=== PATIENT | female | born 1930 ===

== ENCOUNTER 2017-02-26 10:58 | Inpatient (IN) | payer MEDICARE ==
[2017-02-26 11:02] VITALS: BMI 23.0
--- NOTE | 2017-02-26 11:37 | ED PDOC ---
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 Pt c/o left shoulder pain, right headache and generalized pain. mild neck pain with movement Past Medical History Reviewed: Historical Data, Nursing Documentation, Vital Signs Vital Signs: Last Vital Signs Temp 98.2 F 02/28/17 23:58 Pulse 88 02/28/17 23:58 Resp 20 02/28/17 23:58 BP 147/70 02/28/17 23:58 Pulse Ox 97 02/28/17 23:58 - Medical History PMH: No Chronic Diseases - Family History Family History: States: Unknown Family Hx - Living Arrangements Living Arrangements: With Family - Social History Current smoker - smoking cessation education provided: No - Home Medications Home Medications: Ambulatory Orders Medication Instructions Recorded Gabapentin [Neurontin] 300 mg PO DAILY 02/26/17 Levothyroxine [Synthroid] 100 mcg PO DAILY 02/26/17 Meclizine [Meclizine*] 25 mg PO TID PRN 02/26/17 Metoprolol Succinate [Toprol XL] 50 mg PO DAILY 02/26/17 SITagliptin [Januvia] 50 mg PO DAILY 02/26/17 Simvastatin [Zocor] 40 mg PO DAILY 02/26/17 Valsartan [Diovan] 160 mg PO DAILY 02/26/17 metFORMIN [glucOPHAGE] 850 mg PO BID 02/26/17 traMADol [Ultram] 50 mg PO DAILY 02/26/17 - Allergies Allergies/Adverse Reactions: Allergies Allergy/AdvReac Type Severity Reaction Status Date / Time Penicillins Allergy RASH Verified 02/26/17 11:32 Review of Systems ROS Statement: Except As Marked, All Systems Reviewed And Found Negative Constitutional: Negative for: Fever, Chills Cardiovascular: Negative for: Chest Pain, Palpitations Respiratory: Negative for: Cough, Shortness of Breath Gastrointestinal: Negative for: Nausea, Vomiting, Abdominal Pain, Diarrhea Musculoskeletal: Positive for: Neck Pain, Shoulder Pain (l), Foot Pain (r). Negative for: Back Pain, Hand Pain, Leg Pain Neurological: Positive for: Headache. Negative for: Weakness, Numbness, Confusion, Seizures, Altered Mental Status, Dizziness Physical Exam - Reviewed Nursing Documentation Reviewed: Yes Vital Signs Reviewed: Yes - Physical Exam Appears: Positive for: Uncomfortable Head Exam: Positive for: ATRAUMATIC, NORMAL INSPECTION, NORMOCEPHALIC Eye Exam: Positive for: Normal appearance, EOMI, PERRL. Negative for: Nystagmus , Periorbital swelling, Periorbital tenderness, Conjunctival injection Neck: Positive for: Supple, Pain On Movement Of Neck (mild). Negative for: Decreased ROM, Limited ROM, Trachea Midline Cardiovascular/Chest: Positive for: Regular Rate, Rhythm, Chest Non Tender. Negative for: Edema, Gallop, Murmur, Bradycardia, Tachycardia Respiratory: Positive for: Normal Breath Sounds. Negative for: Decreased Breath Sounds, Accessory Muscle Use, Crackles, Rales, Rhonchi, Stridor, Wheezing , Respiratory Distress Pulses-Dorsalis Pedis (L): 2+ Pulses-Dorsalis Pedis (R): 2+ Pulses-Post. Tibialis (L): 2+ Pulses-Post. Tibialis (R): 2+ Pulses-Radial (L): 2+ Pulses-Radial (R): 2+ Gastrointestinal/Abdominal: Positive for: Normal Exam, Bowel Sounds, Soft. Negative for: Tenderness Back: Positive for: Normal Inspection. Negative for: L CVA Tenderness, R CVA Tenderness, Vertebral Tenderness Extremity: Positive for: Other (mod painful rom of left shoulder rom limited by pain focal tenderness to anterior shoulder hand and arm nvi. right foot with ecchymoses full rom, foot nvi). Negative for: Calf Tenderness Neurologic/Psych: Positive for: Alert, supply analyst II-XII, Oriented, Mood/Affect (calm) . Negative for: Motor/Sensory Deficits, Aphasia, Facial Droop - Laboratory Results Result Diagrams: 03/01/17 05:20 02/28/17 05:30 - ECG ECG: Positive for: Interpreted By Me ECG Rhythm: Positive for: Venticular Paced. Negative for: ST/T Changes O2 Sat by Pulse Oximetry: 92 Pulse Ox Interpretation: Normal Medical Decision Making Medical Decision Making: bl hips and pelvis 1 view revela no fx or dislocation, left shoulder 3 views no fx or dislocation, poss scapular fx. right foot 3 views revelas mild displaced linear su fracture, no sts. swill be seen podiatry. Disposition - Clinical Impression Clinical Impression: Fracture, metacarpal - Patient ED Disposition Is Patient to be Admitted: Yes Counseled Patient/Family Regarding: Studies Performed, Diagnosis - Disposition Disposition Time: 15:00 Condition: STABLE - Pt Status Changed To: Hospital Disposition Of: Observation
[2017-02-26] MEDS ORDERED: Sodium Chloride 0.9% 1,000 ML IV ONE (11:41)
[2017-02-26 12:52] LABS: BASO # 0.1 K/uL (0.0-0.2); BASO % 0.7 % (0.0-2.0); EOS # 0.6 K/uL (0.0-0.7); EOS % 7.2 % (0.0-4.0); HEMOGLOBIN 12.8 g/dL (12.0-16.0); LYMPH # 1.5 K/uL (1.0-4.3); LYMPH % 17.2 % (20.0-40.0); MEAN CELL VOLUME 85.5 fl (81.0-99.0); MEAN CORPUSCULAR HEMOGLOBIN 27.3 pg (27.0-31.0); MEAN PLATELET VOLUME 8.7 fl (7.2-11.7); MONO # 0.6 K/uL (0.0-0.8); MONO % 6.8 % (0.0-10.0); NEUT # 6.1 K/uL (1.8-7.0); NEUT % 68.1 % (50.0-75.0); NRBC % 0.1 % (0.0-0.0); RBC 4.67 Mil/uL (3.80-5.20); RED CELL DISTRIBUTION WIDTH 15.1 % (11.5-14.5)
[2017-02-26 13:07] LABS: ALB/GLOB RATIO 1.5 (1.0-2.1); ALBUMIN 4.2 g/dL (3.5-5.0); CALCIUM 10.3 mg/dL (8.4-10.2); MAGNESIUM 1.9 MG/DL (1.6-2.3)
[2017-02-26 13:09] LABS: PROTHROMBIN TIME 11.5 Seconds (9.8-13.1)
[2017-02-26 13:10] LABS: INR 1.1 (0.9-1.2)
[2017-02-26 13:18] LABS: TROPONIN I 0.042 ng/mL (0.00-0.120)
--- NOTE | 2017-02-26 13:36 | RAD ---
PROCEDURE: CHEST RADIOGRAPH, 1 VIEW HISTORY: trauma COMPARISON: 03/24/2009. FINDINGS: LUNGS: Clear. PLEURA: No pneumothorax or pleural fluid seen. CARDIOVASCULAR: No radiographic findings to suggest acute or significant cardiovascular disease. Position/ configuration of pacemaker device: Satisfactory. OSSEOUS STRUCTURES: No significant abnormalities. VISUALIZED UPPER ABDOMEN: Normal. OTHER FINDINGS: None. IMPRESSION: No active disease. No acute/significant interval changes. Concordant results with the preliminary interpretation rendered by the emergency department physician procedure.
--- NOTE | 2017-02-26 13:37 | RAD ---
PROCEDURE: Right Foot Radiographs. HISTORY: trauma COMPARISON: None. FINDINGS: BONES: Transverse fracture base of right 5th metatarsal. JOINTS: Moderate hallux valgus deformity. SOFT TISSUES: Normal. OTHER FINDINGS: None. IMPRESSION: Acute transverse fracture base of 5th metatarsal. Concordant results with the preliminary interpretation rendered by the emergency department physician procedure.
--- NOTE | 2017-02-26 13:38 | RAD ---
PROCEDURE: Radiographs of the Left Shoulder HISTORY: trauma COMPARISON: No prior. FINDINGS: BONES: No acute fracture identified. JOINTS: Severe degenerative changes likely posttraumatic glenohumeral relationship. Mild acromioclavicular degenerative change. . SOFT TISSUES: Normal. OTHER FINDINGS: None. IMPRESSION: No acute findings related to/accounting for the clinical presentation. Concordant results with the preliminary interpretation rendered by the emergency department physician procedure.
--- NOTE | 2017-02-26 13:39 | RAD ---
PROCEDURE: Radiographs of the pelvis and bilateral hips HISTORY: trauma COMPARISON: None. FINDINGS: BONES: Pelvis: No acute fracture. Right hip:Unremarkable. Left hip:Unremarkable. JOINTS: Right hip: Mild degenerative changes. Left hip: Symmetrical degenerative changes. Sacroiliac Joints: Unremarkable. Pubic symphysis: Unremarkable. SOFT TISSUES: Normal. OTHER FINDINGS: None. IMPRESSION: No acute findings related to/accounting for the clinical presentation. Concordant results with the preliminary interpretation rendered by the emergency department physician procedure.
--- NOTE | 2017-02-26 13:41 | CT ---
PROCEDURE: CT HEAD WITHOUT CONTRAST. HISTORY: trauma COMPARISON: None available. TECHNIQUE: Axial computed tomography images were obtained through the head/brain without intravenous contrast. Coronal and sagittal reconstructed images. Radiation dose: Total exam DLP = 920.48 mGy-cm. This CT exam was performed using one or more of the following dose reduction techniques: Automated exposure control, adjustment of the mA and/or kV according to patient size, and/or use of iterative reconstruction technique. FINDINGS: HEMORRHAGE: No intracranial hemorrhage. BRAIN: No mass effect or edema. Cortical atrophy, periventricular small vessel disease VENTRICLES: Unremarkable. No hydrocephalus. CALVARIUM: Unremarkable. PARANASAL SINUSES: Unremarkable as visualized. No significant inflammatory changes. MASTOID AIR CELLS: Unremarkable as visualized. No inflammatory changes. OTHER FINDINGS: None. IMPRESSION: No acute intracranial abnormalities. No significant findings to account for the clinical presentation.
--- NOTE | 2017-02-26 13:47 | CT ---
PROCEDURE: CT Cervical Spine without contrast HISTORY: Trauma. Left shoulder pain COMPARISON: None available. TECHNIQUE: Axial computed tomography images were obtained of the cervical spine without the use of intravenous contrast. Coronal and sagittal reformatted images were created and reviewed. Radiation dose: Total exam DLP = 510.80 mGy-cm. This CT exam was performed using one or more of the following dose reduction techniques: Automated exposure control, adjustment of the mA and/or kV according to patient size, and/or use of iterative reconstruction technique. FINDINGS: VERTEBRAE: No fracture. Normal alignment. No destructive bony lesion. DISCS/SPINAL CANAL/NEURAL FORAMINA: Disc degenerative changes, moderate, multilevel. Central bar formation C4-5 and C5-6. There is impression upon the central canal at these levels. Foraminal narrowing is also seen as is uncovertebral hypertrophy. PARASPINAL SOFT TISSUES: Unremarkable. OTHER FINDINGS: Incompletely visualized esophageal thickening in etiology, significance uncertain. Findings likely represent esophagitis. IMPRESSION: No acute findings related to/accounting for the clinical presentation. Additional benign and/or incidental findings described above.
--- NOTE | 2017-02-26 13:50 | CT ---
PROCEDURE: CT of the left shoulder without contrast HISTORY: left shoulder pain r/o scapular fracture COMPARISON: Comparison is made to the previous x-ray of the left shoulder dated 02/26/2017 TECHNIQUE: Axial and reformatted coronal and sagittal CT images of the left shoulder were obtained without IV contrast administration. Total exam DLP: 309.46. FINDINGS: There is no evidence of acute fracture at the left shoulder and left scapula. There are severe osteoarthritic changes seen at the left shoulder more prominent at the glenohumeral joint. There is severe narrowing of the joint space of the glenohumeral joint associated with large marginal osteophyte formation. There are also foci of calcification in the joint is space suggestive of calcified loose body. No evidence of dislocation. There is also suspicious for small to moderate size joint effusion. There is left-sided pacemaker seen in place. No evidence of pleural effusion or pneumothorax in the visualized portion of the left chest. . IMPRESSION: No CT evidence of acute fracture or dislocation at the left shoulder. 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 Suspicious for calcified loose bodies at the glenohumeral joint associated with joint effusion.
--- NOTE | 2017-02-26 15:40 | CARD ---
APPROVED REPORT EKG Measurement Heart [id number] <Conclusion> Pacemaker Rhythm
--- NOTE | 2017-02-26 17:17 | CP.PCM.CON ---
History of Present Illness - History of Present Illness History of Present Illness: 86 year old female with PMH of DM and heart disease was seen in the ED for right foot pain. She states that she fell yesterday in the bathroom as she was getting up from the using the rest room. She was founded by her caregiver this morning. She states her pain is 8/10 and describes the pain being on the lateral side of her right foot radiating to her ankle. She denies n/v/sob/cp/ chills or f. Patient is kazakh speaking- director sales service was used in this encounter [place] [id number] PMH: DM, heart disease Allergies: Pencillin FH: cancer, DM, heart disease SH: denies smoking, drinking or elicited drug use PSH: hysterectomy Meds: see medication list Meds Allergies/Adverse Reactions: Allergies Allergy/AdvReac Type Severity Reaction Status Date / Time Penicillins Allergy RASH Verified 02/26/17 11:32 Physical Exam - Constitutional Appears: Well, Non-toxic, No Acute Distress - Extremities Exam Additional comments: Vasc: DP and PT is faintly palpable, temperature is cool to cool, edema noted to the right foot noted, DIRECTOR OF PRIMARY <4 seconds Ortho: MM is 4/5 L and 3/5 R in all four compartments, severe pain with palpation of the lateral metatarsal shaft and base and lateral dorsum foot Neuro:protective sensation is diminished bilaterally, gross sensation intact bilaterally Derm: no open lesion, ecchymosis noted to the dorsum of R lateral foot - Neurological Exam Neurological exam: Alert, Oriented x3 - Psychiatric Exam Psychiatric exam: Normal Affect, Normal Mood Results - Vital Signs Recent Vital Signs: Last Vital Signs Temp 98.2 F 02/26/17 11:01 Pulse 87 02/26/17 11:01 Resp 20 02/26/17 11:01 BP 108/62 02/26/17 11:01 Pulse Ox 92 L 02/26/17 15:05 - Labs Result Diagrams: 02/26/17 12:30 02/26/17 12:30 Assessment & Plan - Assessment and Plan (Free Text) Assessment: 86 year old female with PMH of DM and heart disease seen for right 5th metatarsal fracture Plan: Patient was seen and evaluated in the ED Discussed plan in detail with attending Dr. Heredia Charts, labs, vitals reviewed- afebrile, no leukocytosis Modified su compression placed in right lower extremity Patient was told initially to she may WBAT with modified su compression in surgical shoe with walker as outpatient, but since she's being admitted, it is best that she remain NWB Spoke to nurse that her WB status has changed. She is to be NWB in modified su compression. Patient will continue to follow while in house. Thank you for the consult.
[2017-02-26 17:31] LABS: SQUAMOUS EPITHIAL 6 /hpf (0-5); URINE BACTERIA OCC (<OCC); URINE BILIRUBIN NEGATIVE (NEGATIVE); URINE BLOOD MODERATE (NEGATIVE); URINE CLARITY CLOUDY (Clear); URINE COLOR YELLOW (YELLOW); URINE GLUCOSE (UA) NEG (Normal); URINE HYALINE CAST 0-2 /hpf (0-2); URINE LEUKOCYTE ESTERASE LARGE Leu/uL (Negative); URINE NITRATE NEGATIVE (NEGATIVE); URINE PROTEIN NEGATIVE (NEGATIVE); URINE UROBILINOGEN 0.2-1.0 mg/dL (0.2-1.0)
[2017-02-26 19:19] LABS: HDL CHOLESTEROL 45 MG/DL (30-70)
[2017-02-26 19:30] LABS: LDL CHOLESTEROL 87 mg/dL (0-129)
[2017-02-27] MEDS: Levothyroxine 100 MCG TAB PO SCH (06:39)
[2017-02-27] MEDS: Oxycodone/Acetaminophen 5/325 mg Tab PO PRN ×3 (07:33→23:42)
[2017-02-27 08:51] LABS: CALCIUM 10.1 mg/dL (8.4-10.2)
[2017-02-27] MEDS: Metoprolol Succinate 50 mg XL Tab PO SCH (09:30)
[2017-02-27] MEDS: Enoxaparin 30 mg Syringe SC SCH (09:30)
--- NOTE | 2017-02-27 10:08 | CARD ---
APPROVED REPORT EXAM: Two-dimensional and M-mode echocardiogram with Doppler and color Doppler. Other Information Quality : GoodRhythm : NSR INDICATION Congestive Heart Failure Surgery/Intervention Pacemaker: 2D DIMENSIONS IVSd1.28 (0.7-1.1cm)LVDd3.32 (3.9-5.9cm) LVOT Diameter1.96 (1.8-2.4cm)PWd1.51 (0.7-1.1cm) IVSs1.57 (0.8-1.2cm)LVDs2.37 (2.5-4.0cm) FS (%) 28.8 %PWs1.50 (0.8-1.2cm) M-Mode DIMENSIONS Left Atrium (MM)3.21 (2.5-4.0cm)IVSd1.06 (0.7-1.1cm) Aortic Root3.00 (2.2-3.7cm)LVDd4.03 (4.0-5.6cm) Aortic Cusp Exc.1.00 (1.5-2.0cm)PWd1.12 (0.7-1.1cm) IVSs1.62 cmFS (%) 44 % LVDs2.26 (2.0-3.8cm)PWs1.62 cm Aortic Valve AoV Peak Gigldngu328.0cm/sAoV VTI42.3cmAO Peak GR.16mmHg LVOT Peak Oyvbkppk46.1cm/sLVOT VTI20.18cmAO Mean GR.10mmHg SHUN (VMAX)0.61yb2IHP (VTI)0.90cm2 Mitral Valve MV E Wqkluvbt336.1cm/sMV DECEL HJKA491drGN A Cujudwuw211.0cm/s MV ZBN61iqB/A ratio0.6MVA (PHT)2.71cm2 TDI E/Lateral E'0.0E/Medial E'0.0 Pulmonary Valve PV Peak Imzepxuk07.0cm/s Tricuspid Valve TR Peak Oodzenku491jc/sRAP BQHDSXJP03foRuYB Peak Gr.47mmHg MZBV52ltFj LEFT VENTRICLE The left ventricle is normal size. There is moderate concentric left ventricular hypertrophy. The left ventricular function is normal. The left ventricular ejection fraction is within the normal range. The Ejection Fraction is 55-60%. There is normal LV segmental wall motion. The left ventricular diastolic function is normal. No left ventricle thrombus noted on this study. There is no mass noted in the left ventricle. RIGHT VENTRICLE The right ventricle is normal size. There is normal right ventricular wall thickness. The right ventricular systolic function is normal. ATRIA The left atrium size is normal. The right atrium size is normal. The interatrial septum is intact with no evidence for an atrial septal defect. AORTIC VALVE The aortic valve is mildly calcified. No aortic regurgitation is present. There is mild valvular aortic stenosis. There is no aortic valvular vegetation. MITRAL VALVE Mitral annular calcification is mild. There is no evidence of mitral valve prolapse. There is no mitral valve stenosis. Mitral regurgitation is mild. TRICUSPID VALVE The tricuspid valve is normal in structure and function. There is mild tricuspid regurgitation. Right ventricular systolic pressure is estimated at 57 mmHg. There is moderate pulmonary hypertension. There is no tricuspid valve prolapse or vegetation. There is no tricuspid valve stenosis. PULMONIC VALVE The pulmonary valve is normal in structure and function. There is no pulmonic valvular regurgitation. There is no pulmonic valvular stenosis. GREAT VESSELS The aortic root is normal in size. The IVC is normal in size and collapses >50% with inspiration. PERICARDIAL EFFUSION The pericardium appears normal. There is no pleural effusion. <Conclusion> The left ventricle is normal size. There is moderate concentric left ventricular hypertrophy. The left ventricular function is normal. The left ventricular ejection fraction is within the normal range. The Ejection Fraction is 55-60%. The aortic valve is mildly calcified. There is mild valvular aortic stenosis. Mitral annular calcification is mild. Mitral regurgitation is mild. There is mild tricuspid regurgitation. Right ventricular systolic pressure is estimated at 57 mmHg. There is moderate pulmonary hypertension.
--- NOTE | 2017-02-27 10:17 | CP.PCM.CON ---
History of Present Illness - History of Present Illness History of Present Illness: 86 y/o female admitted after a fall sustained a Fx Right 5th Metatarsal Consult called for abnormal EKG: PMH: HTN Permanent Pacemaker inserted 3-4 Yrs ago EKG: Pacemaker rhythm Echo: Conc Hypertrphy LV Good LV function MR TR Pt denies any chest pains / SOB/HOUSE/palpitations Past Patient History - Past Medical History & Family History Past Medical History?: Yes - Past Social History Smoking Status: Light Smoker < 10 Cigarettes Daily - CARDIAC Hx Cardiac Disorders: No - PULMONARY Hx Respiratory Disorders: No - NEUROLOGICAL Hx Neurological Disorder: No - HEENT Hx HEENT Problems: Yes Hx Cataracts: Yes - RENAL Hx Chronic Kidney Disease: No - ENDOCRINE/METABOLIC Hx Endocrine Disorders: Yes Hx Diabetes Mellitus Type 2: Yes - HEMATOLOGICAL/ONCOLOGICAL Hx Blood Disorders: No - INTEGUMENTARY Hx Dermatological Problems: No - MUSCULOSKELETAL/RHEUMATOLOGICAL Hx Musculoskeletal Disorders: Yes Hx Falls: Yes - GASTROINTESTINAL Hx Gastrointestinal Disorders: No - GENITOURINARY/GYNECOLOGICAL Hx Genitourinary Disorders: No - PSYCHIATRIC Hx Psychophysiologic Disorder: No Hx Substance Use: No - SURGICAL HISTORY Hx Surgeries: Yes Hx Hysterectomy: Yes - ANESTHESIA Hx Anesthesia: Yes Hx Anesthesia Reactions: No Hx Malignant Hyperthermia: No Has any member of the family had a problem w/ anesthesia?: No Meds Allergies/Adverse Reactions: Allergies Allergy/AdvReac Type Severity Reaction Status Date / Time Penicillins Allergy RASH Verified 02/26/17 11:32 - Medications Medications: Current Medications Acetaminophen (Tylenol 325mg Tab) 650 mg PO Q6 PRN PRN Reason: Pain, Mild (1-3) Atorvastatin Calcium (Lipitor) 20 mg PO DAILY [facility] Last Admin: 02/27/17 09:30 Dose: 20 mg Enoxaparin Sodium (Lovenox) 30 mg SC DAILY [facility] PRN Reason: Protocol Last Admin: 02/27/17 09:30 Dose: 30 mg Gabapentin (Neurontin) 300 mg PO DAILY [facility] Last Admin: 02/27/17 09:29 Dose: 300 mg Levothyroxine Sodium (Synthroid) 100 mcg PO DAILY@0630 [facility] Last Admin: 02/27/17 06:39 Dose: 100 mcg Metformin HCl (Glucophage) 850 mg PO BID [facility] Last Admin: 02/27/17 09:30 Dose: 850 mg Metoprolol Succinate (Toprol Xl) 50 mg PO DAILY [facility] Last Admin: 02/27/17 09:30 Dose: 50 mg Oxycodone/Acetaminophen (Percocet 5/325 Mg Tab) 1 tab PO Q6 PRN PRN Reason: Pain, moderate (4-7) Stop: 03/01/17 22:01 Last Admin: 02/27/17 07:33 Dose: 1 tab Sitagliptin Phosphate (Januvia) 50 mg PO DAILY [facility] Last Admin: 02/27/17 09:30 Dose: 50 mg Valsartan (Diovan) 160 mg PO DAILY [facility] Last Admin: 02/27/17 09:29 Dose: 160 mg Physical Exam - Head Exam Head Exam: NORMAL INSPECTION - Eye Exam Pupil Exam: NORMAL ACCOMODATION - ENT Exam ENT Exam: Normal Exam - Neck Exam Neck exam: Positive for: Normal Inspection - Respiratory Exam Respiratory Exam: NORMAL BREATHING PATTERN - Cardiovascular Exam Cardiovascular Exam: REGULAR RHYTHM Results - Vital Signs Recent Vital Signs: Last Vital Signs Temp 97.4 F L 02/27/17 08:28 Pulse 75 02/27/17 09:30 Resp 20 02/27/17 08:28 BP 171/72 H 02/27/17 09:30 Pulse Ox 92 L 02/27/17 08:28 - Labs Result Diagrams: 02/26/17 12:30 02/27/17 06:00 Labs: Laboratory Results - last 24 hr 02/26/17 02/26/17 02/26/17 17:06 17:59 19:06 Sodium Potassium Chloride Carbon Dioxide Anion Gap BUN Creatinine Est GFR ( Amer) Est GFR (Non-Af Amer) POC Glucose (mg/dL) 218 H Random Glucose Calcium Total Creatine Kinase Triglycerides 217 H Cholesterol 199 LDL Cholesterol Direct 87 HDL Cholesterol 45 TSH 3rd Generation Urine Color Yellow Urine Clarity Cloudy Urine pH 6.0 Ur Specific [place] 1.015 Urine Protein Negative Urine Glucose (UA) Neg Urine Ketones Negative Urine Blood Moderate Urine Nitrate Negative Urine Bilirubin Negative Urine Urobilinogen 0.2-1.0 Ur Leukocyte Esterase Large Urine RBC (Auto) 12 H Urine Microscopic WBC 55 H Ur Squamous Epith Cells 6 H Urine Bacteria Occ H Hyaline Casts 0-2 02/27/17 02/27/17 02/27/17 05:14 06:00 08:50 Sodium 141 Potassium 4.1 Chloride 106 Carbon Dioxide 26 Anion Gap 12 BUN 32 H Creatinine 1.2 Est GFR ( Amer) 52 Est GFR (Non-Af Amer) 43 POC Glucose (mg/dL) 187 H Random Glucose 131 H Calcium 10.1 Total Creatine Kinase 201 H Triglycerides Cholesterol LDL Cholesterol Direct HDL Cholesterol TSH 3rd Generation 0.59 Urine Color Urine Clarity Urine pH Ur Specific [place] Urine Protein Urine Glucose (UA) Urine Ketones Urine Blood Urine Nitrate Urine Bilirubin Urine Urobilinogen Ur Leukocyte Esterase Urine RBC (Auto) Urine Microscopic WBC Ur Squamous Epith Cells Urine Bacteria Hyaline Casts Assessment & Plan (1) Fracture of metatarsal of right foot, closed Status: Acute (2) History of permanent cardiac pacemaker placement Assessment and Plan: Pt has a PPM EKG: PPM Rhythm Cardiac vang the pt is stable Status: Acute (3) Essential (primary) hypertension Status: Acute
--- NOTE | 2017-02-27 12:18 | CP.PCM.HP ---
History of Present Illness - History of Present Illness History of Present Illness: 86 y/o F with PMHx of HTN, DM type 2, Hypothyroidism, and Pacemaker ( 3 years ago) came via EMS. As per EMS, pt fell last night and was found by caregiver this AM. As per patient she did not hit her head or had LOC. Patient states right foot pain,radiating up to her right leg below the knee, denies numbness, tingling or foot or lower extremities. Denies Cp, SOB, N/V, abdominal pain or other complains. Present on Admission - Present on Admission Any Indicators Present on Admission: No History of DVT/PE: No History of Uncontrolled Diabetes: No Urinary Catheter: No Decubitus Ulcer Present: No Review of Systems - Review of Systems All systems: reviewed and no additional remarkable complaints except (as per HPI ) Past Patient History - Past Medical History & Family History Past Medical History?: Yes - Past Social History Smoking Status: Light Smoker < 10 Cigarettes Daily - CARDIAC Hx Cardiac Disorders: No - PULMONARY Hx Respiratory Disorders: No - NEUROLOGICAL Hx Neurological Disorder: No - HEENT Hx HEENT Problems: Yes Hx Cataracts: Yes - RENAL Hx Chronic Kidney Disease: No - ENDOCRINE/METABOLIC Hx Endocrine Disorders: Yes Hx Diabetes Mellitus Type 2: Yes - HEMATOLOGICAL/ONCOLOGICAL Hx Blood Disorders: No - INTEGUMENTARY Hx Dermatological Problems: No - MUSCULOSKELETAL/RHEUMATOLOGICAL Hx Musculoskeletal Disorders: Yes Hx Falls: Yes - GASTROINTESTINAL Hx Gastrointestinal Disorders: No - GENITOURINARY/GYNECOLOGICAL Hx Genitourinary Disorders: No - PSYCHIATRIC Hx Psychophysiologic Disorder: No Hx Substance Use: No - SURGICAL HISTORY Hx Surgeries: Yes Hx Hysterectomy: Yes - ANESTHESIA Hx Anesthesia: Yes Hx Anesthesia Reactions: No Hx Malignant Hyperthermia: No Has any member of the family had a problem w/ anesthesia?: No Meds Allergies/Adverse Reactions: Allergies Allergy/AdvReac Type Severity Reaction Status Date / Time Penicillins Allergy RASH Verified 02/26/17 11:32 Physical Exam - Constitutional Appears: No Acute Distress - ENT Exam ENT Exam: Mucous Membranes Moist - Respiratory Exam Respiratory Exam: Clear to Auscultation Bilateral, NORMAL BREATHING PATTERN. absent: Rales, Rhonchi, Wheezes, Respiratory Distress - Cardiovascular Exam Cardiovascular Exam: REGULAR RHYTHM, +S1, +S2 - GI/Abdominal Exam GI & Abdominal Exam: Normal Bowel Sounds, Soft. absent: Distended, Guarding, Rigid, Tenderness - Extremities Exam Extremities exam: Positive for: normal inspection. Negative for: calf tenderness, pedal edema - Neurological Exam Neurological exam: Alert, Oriented x3 - Skin Skin Exam: Dry, Intact, Normal Color Results - Vital Signs Recent Vital Signs: Last Vital Signs Temp 97.4 F L 02/27/17 08:28 Pulse 75 02/27/17 09:30 Resp 20 02/27/17 08:28 BP 171/72 H 02/27/17 09:30 Pulse Ox 92 L 02/27/17 08:28 - Labs Result Diagrams: 02/26/17 12:30 02/27/17 06:00 Labs: Laboratory Results - last 24 hr 02/26/17 02/26/17 02/26/17 17:06 17:59 19:06 Sodium Potassium Chloride Carbon Dioxide Anion Gap BUN Creatinine Est GFR ( Amer) Est GFR (Non-Af Amer) POC Glucose (mg/dL) 218 H Random Glucose Calcium Total Creatine Kinase Triglycerides 217 H Cholesterol 199 LDL Cholesterol Direct 87 HDL Cholesterol 45 Vitamin B12 TSH 3rd Generation Urine Color Yellow Urine Clarity Cloudy Urine pH 6.0 Ur Specific Sparks 1.015 Urine Protein Negative Urine Glucose (UA) Neg Urine Ketones Negative Urine Blood Moderate Urine Nitrate Negative Urine Bilirubin Negative Urine Urobilinogen 0.2-1.0 Ur Leukocyte Esterase Large Urine RBC (Auto) 12 H Urine Microscopic WBC 55 H Ur Squamous Epith Cells 6 H Urine Bacteria Occ H Hyaline Casts 0-2 02/27/17 02/27/17 02/27/17 05:14 06:00 08:50 Sodium 141 Potassium 4.1 Chloride 106 Carbon Dioxide 26 Anion Gap 12 BUN 32 H Creatinine 1.2 Est GFR ( Amer) 52 Est GFR (Non-Af Amer) 43 POC Glucose (mg/dL) 187 H Random Glucose 131 H Calcium 10.1 Total Creatine Kinase 201 H Triglycerides Cholesterol LDL Cholesterol Direct HDL Cholesterol Vitamin B12 266 TSH 3rd Generation 0.59 Urine Color Urine Clarity Urine pH Ur Specific Sparks Urine Protein Urine Glucose (UA) Urine Ketones Urine Blood Urine Nitrate Urine Bilirubin Urine Urobilinogen Ur Leukocyte Esterase Urine RBC (Auto) Urine Microscopic WBC Ur Squamous Epith Cells Urine Bacteria Hyaline Casts 02/27/17 10:48 Sodium Potassium Chloride Carbon Dioxide Anion Gap BUN Creatinine Est GFR ( Amer) Est GFR (Non-Af Amer) POC Glucose (mg/dL) 161 H Random Glucose Calcium Total Creatine Kinase Triglycerides Cholesterol LDL Cholesterol Direct HDL Cholesterol Vitamin B12 TSH 3rd Generation Urine Color Urine Clarity Urine pH Ur Specific Sparks Urine Protein Urine Glucose (UA) Urine Ketones Urine Blood Urine Nitrate Urine Bilirubin Urine Urobilinogen Ur Leukocyte Esterase Urine RBC (Auto) Urine Microscopic WBC Ur Squamous Epith Cells Urine Bacteria Hyaline Casts Assessment & Plan (1) Fracture of metatarsal of right foot, closed Status: Acute Comment: c/w pain control. Podiatry consult. f/o Podiatry recommendations (2) Essential (primary) hypertension Status: Chronic Comment: c/w home meds. c/w BP monitoring (3) Diabetes mellitus type 2 in nonobese Status: Chronic Comment: c/w accucheck. c/w home medications. f/u HgbA1C. f/u lipid profile (4) Acute kidney failure Status: Acute Comment: most likely due to dehydration. BUN/Cr: 44/1.5. patient got IV bolus in ER. f/u BMP: BUN/Cr - Assessment and Plan (Free Text) Assessment: 86 y/o F s/p fall, admitted with acute renal failure and fracture of metatarsal right foot. - Date & Time Date: 02/26/17 Time: 16:00
--- NOTE | 2017-02-27 18:08 | CP.PCM.CON ---
History of Present Illness - History of Present Illness History of Present Illness: Mrs. Reynaga is an 86-year-old woman with a past medical history of HTN, DM, has pacemaker, vertigo, who was brought in by EMS after being found on the floor as a result of a fall. She did not have loss of consciousness and was found to have a fracture of the right foot. The patient complains of being chronically dizzy. Neurology was consulted to assist with the management and care. Today, the patient had received Percocet for the pain and complained that she as still having left shoulder and right foot. The patient had imaging of her head with a CT scan which did not show any acute findings. Review of Systems - Review of Systems All systems: reviewed and no additional remarkable complaints except Past Patient History - Past Medical History & Family History Past Medical History?: Yes - Past Social History Smoking Status: Light Smoker < 10 Cigarettes Daily - CARDIAC Hx Cardiac Disorders: No - PULMONARY Hx Respiratory Disorders: No - NEUROLOGICAL Hx Neurological Disorder: No - HEENT Hx HEENT Problems: Yes Hx Cataracts: Yes - RENAL Hx Chronic Kidney Disease: No - ENDOCRINE/METABOLIC Hx Endocrine Disorders: Yes Hx Diabetes Mellitus Type 2: Yes - HEMATOLOGICAL/ONCOLOGICAL Hx Blood Disorders: No - INTEGUMENTARY Hx Dermatological Problems: No - MUSCULOSKELETAL/RHEUMATOLOGICAL Hx Musculoskeletal Disorders: Yes Hx Falls: Yes - GASTROINTESTINAL Hx Gastrointestinal Disorders: No - GENITOURINARY/GYNECOLOGICAL Hx Genitourinary Disorders: No - PSYCHIATRIC Hx Psychophysiologic Disorder: No Hx Substance Use: No - SURGICAL HISTORY Hx Surgeries: Yes Hx Hysterectomy: Yes - ANESTHESIA Hx Anesthesia: Yes Hx Anesthesia Reactions: No Hx Malignant Hyperthermia: No Has any member of the family had a problem w/ anesthesia?: No Meds Allergies/Adverse Reactions: Allergies Allergy/AdvReac Type Severity Reaction Status Date / Time Penicillins Allergy RASH Verified 02/26/17 11:32 - Medications Medications: Current Medications Acetaminophen (Tylenol 325mg Tab) 650 mg PO Q6 PRN PRN Reason: Pain, Mild (1-3) Atorvastatin Calcium (Lipitor) 20 mg PO DAILY [facility] Last Admin: 02/27/17 09:30 Dose: 20 mg Enoxaparin Sodium (Lovenox) 30 mg SC DAILY [facility] PRN Reason: Protocol Last Admin: 02/27/17 09:30 Dose: 30 mg Gabapentin (Neurontin) 300 mg PO DAILY [facility] Last Admin: 02/27/17 09:29 Dose: 300 mg Levothyroxine Sodium (Synthroid) 100 mcg PO DAILY@0630 [facility] Last Admin: 02/27/17 06:39 Dose: 100 mcg Metformin HCl (Glucophage) 850 mg PO BID [facility] Last Admin: 02/27/17 17:20 Dose: 850 mg Metoprolol Succinate (Toprol Xl) 50 mg PO DAILY [facility] Last Admin: 02/27/17 09:30 Dose: 50 mg Oxycodone/Acetaminophen (Percocet 5/325 Mg Tab) 1 tab PO Q6 PRN PRN Reason: Pain, moderate (4-7) Stop: 03/01/17 22:01 Last Admin: 02/27/17 17:20 Dose: 1 tab Sitagliptin Phosphate (Januvia) 50 mg PO DAILY [facility] Last Admin: 02/27/17 09:30 Dose: 50 mg Valsartan (Diovan) 160 mg PO DAILY [facility] Last Admin: 02/27/17 09:29 Dose: 160 mg Physical Exam - Constitutional Appears: Well - Eye Exam Eye Exam: EOMI, Normal appearance, PERRL - ENT Exam ENT Exam: Mucous Membranes Moist, Normal Exam - Neck Exam Neck exam: Positive for: Normal Inspection - Respiratory Exam Respiratory Exam: Clear to Auscultation Bilateral, NORMAL BREATHING PATTERN - Cardiovascular Exam Cardiovascular Exam: REGULAR RHYTHM, +S1, +S2 - GI/Abdominal Exam GI & Abdominal Exam: Normal Bowel Sounds, Soft. absent: Tenderness - Rectal Exam Rectal Exam: Deferred - Extremities Exam Extremities exam: Positive for: joint swelling - Back Exam Back exam: NORMAL INSPECTION - Neurological Exam Neurological exam: Abnormal Gait, Alert, CN II-XII Intact, Oriented x3 - Expanded Neurological Exam Expanded Patient oriented to: person, place, time Cranial nerves: EOM's Intact: Normal, Facial Sensation: Normal, Nystagmus: Normal Cerebellar Function: Finger to Nose: Abnormal Left (unable to perform due to pain in shoulder) Upper motor neuron: Babinski Sign: Normal Sensory exam: Lower Extremity Light Touch: Normal, Lower Extremity Pin Prick: Normal, Upper Extremity Light Touch: Normal, Upper Extremity Pin Prick: Normal Neuro motor strength exam: Left Upper Extremity: 3 (Due to pain), Right Upper Extremity: 5, Left Lower Extremity: 5, Right Lower Extremity: 4 (normal proximal strength, but distal was abnormal due to being in a cast and pain.) DTR: Bicep Left: 2+, Bicep Right: 2+, Brachioradialis Left: 2+, Brachioradialis Right: 2+, Patellar Left: 2+, Patellar Right: 2+ - Psychiatric Exam Psychiatric exam: Normal Affect, Normal Mood - Skin Skin Exam: Dry, Intact, Normal Color, Warm Results - Vital Signs Recent Vital Signs: Last Vital Signs Temp 97.4 F L 02/27/17 08:28 Pulse 75 02/27/17 09:30 Resp 20 02/27/17 08:28 BP 171/72 H 02/27/17 09:30 Pulse Ox 92 L 02/27/17 08:28 - Labs Result Diagrams: 02/26/17 12:30 02/27/17 06:00 Labs: Laboratory Results - last 24 hr 02/26/17 02/26/17 02/27/17 17:59 19:06 05:14 Sodium Potassium Chloride Carbon Dioxide Anion Gap BUN Creatinine Est GFR ( Amer) Est GFR (Non-Af Amer) POC Glucose (mg/dL) 218 H 187 H Random Glucose Calcium Total Creatine Kinase Triglycerides 217 H Cholesterol 199 LDL Cholesterol Direct 87 HDL Cholesterol 45 Vitamin B12 TSH 3rd Generation 02/27/17 02/27/17 02/27/17 06:00 08:50 10:48 Sodium 141 Potassium 4.1 Chloride 106 Carbon Dioxide 26 Anion Gap 12 BUN 32 H Creatinine 1.2 Est GFR ( Amer) 52 Est GFR (Non-Af Amer) 43 POC Glucose (mg/dL) 161 H Random Glucose 131 H Calcium 10.1 Total Creatine Kinase 201 H Triglycerides Cholesterol LDL Cholesterol Direct HDL Cholesterol Vitamin B12 266 TSH 3rd Generation 0.59 02/27/17 17:27 Sodium Potassium Chloride Carbon Dioxide Anion Gap BUN Creatinine Est GFR ( Amer) Est GFR (Non-Af Amer) POC Glucose (mg/dL) 138 H Random Glucose Calcium Total Creatine Kinase Triglycerides Cholesterol LDL Cholesterol Direct HDL Cholesterol Vitamin B12 TSH 3rd Generation Assessment & Plan (1) Dizziness Assessment and Plan: She does not describe this as vertigo, but states that she feels lightheaded. This could be due to cardiac, renal or medications. Non-focal neurological exam and no nystagmus was noted. No further recommendations at this time. Thank you. Status: Acute Priority: High
--- NOTE | 2017-02-27 19:16 | HP ---
CHIEF COMPLAINT: Foot pain. HISTORY OF PRESENT ILLNESS: This is an 86-year-old female who lives at home-alone with director of home economics, who had a fall at home and then patient could not get up from bathtub and the patient was found in pain in bathtub by director of home economics. The patient was brought to emergency room and was admitted for further management. REVIEW OF SYSTEMS: Positive for foot pain. Review of systems otherwise is negative for headache, dizziness, syncope, loss of consciousness, chest pain, shortness of breath, nausea, vomiting, diarrhea, constipation, any knee joint or extremity pain other than the foot. Review of systems of all other organ systems is remarkable. PAST MEDICAL HISTORY: The patient denies any significant past medical history. The patient also denies any significant surgery, although apparently the patient does have diabetes, hypertension, elevated cholesterol, dizziness, hypothyroidism, and neuropathy. MEDICATIONS: The patient is on gabapentin, Synthroid, meclizine, Toprol, Januvia, Zocor, Diovan, Glucophage and Ultram. ALLERGIES: THE PATIENT IS ALLERGIC TO PENICILLIN. FAMILY HISTORY: Noncontributory. PHYSICAL EXAMINATION: GENERAL: Well-built, well-nourished, 86-year-old female in no acute distress. VITAL SIGNS: Temperature 98.3, pulse 85, respirations 20, blood pressure 156/83. HEENT: Pupils reacting to light. No JVD. No thyromegaly. No lymphadenopathy. No nystagmus. Normocephalic, atraumatic scalp. HEART: S1 and S2 normal, regular. No significant murmur, gallop or rub is heard. LUNGS: Shows good bilateral air exchange. No rales or rhonchi. ABDOMEN: Soft, nontender, no organomegaly, no fluid. Bowel sounds are present. EXTREMITIES: The patient's right lower extremity is under podiatric dressing. No sign of neurological compromise. No edema. No calf swelling or tenderness. No acute ischemia. CENTRAL NERVOUS SYSTEM: Essentially unchanged. There is no sign of any acute, gross, focal, motor or sensory neurological deficit. DIAGNOSTIC DATA: Available diagnostic data reviewed. WBC 9.0, hemoglobin 12.8, hematocrit 39.9, platelets 162. Sodium 139, potassium 4.6, chloride 105, bicarb 25, BUN 24, creatinine 1.5. Accu-Cheks are 187, 218, and 131. CPK level is 245. Pro-BNP level is 1180, is 217. Urinalysis is unremarkable. Foot x-ray is consistent with fifth metatarsal transverse acute fracture. Other x-rays did not show any acute bony abnormality consistent with arthritis. The CAT scan of head is unremarkable. EKG does not show any acute ST-T changes. Chest x-ray is clear. ADMITTING IMPRESSION: Fracture of fifth metatarsal bone, mechanical fall, hypertension, type 2 diabetes with hyperglycemia; elevated cholesterol; congestive heart failure systolic chronic. PLAN: As ordered. Plan discussed with the patient. Shlomo Gomez MD
[2017-02-28] MEDS: Levothyroxine 100 MCG TAB PO SCH (07:00)
[2017-02-28 08:01] LABS: HEMOGLOBIN 12.5 g/dL (12.0-16.0); MEAN CORPUSCULAR HEMOGLOBIN 27.8 pg (27.0-31.0); MEAN CORPUSCULAR HGB CONC 32.3 g/dL (33.0-37.0); RBC 4.49 Mil/uL (3.80-5.20); RED CELL DISTRIBUTION WIDTH 15.3 % (11.5-14.5); WHITE BLOOD COUNT 7.9 K/uL (4.8-10.8)
[2017-02-28] MEDS: Metoprolol Succinate 50 mg XL Tab PO SCH (08:18)
[2017-02-28] MEDS: Enoxaparin 30 mg Syringe SC SCH (08:20)
[2017-02-28 08:38] LABS: ALB/GLOB RATIO 1.4 (1.0-2.1); ALBUMIN 3.7 g/dL (3.5-5.0)
--- NOTE | 2017-02-28 09:57 | CP.PCM.PN ---
Subjective - Date & Time of Evaluation Date of Evaluation: 02/28/17 Time of Evaluation: 09:55 - Subjective Subjective: 86 year old female with DM seen for right 5th metatarsal fracture seen at bedside. Patient is seen resting comfortably in bed. Modified Mancia compression is c/d/i. Patient reports having right foot pain, the same pain. Denies n/v/sob/ cp/chills or f. Reports having a headache last night. When asked questions about leg/foot, patient does not answer appropriately. Changes topics frequently ; gibberish speech. Objective - Vital Signs/Intake and Output Vital Signs (last 24 hours): Temp Pulse Resp BP Pulse Ox 97.2 F L 65 20 136/64 98 02/28/17 00:45 02/28/17 08:18 02/28/17 00:45 02/28/17 08:18 02/28/17 00:45 - Medications Medications: Current Medications Acetaminophen (Tylenol 325mg Tab) 650 mg PO Q6 PRN PRN Reason: Pain, Mild (1-3) Atorvastatin Calcium (Lipitor) 20 mg PO DAILY [facility] Last Admin: 02/28/17 08:20 Dose: 20 mg Cyanocobalamin (Vitamin B12 1000 Mcg/Ml Inj) 1,000 mcg IM DAILY [facility] Enoxaparin Sodium (Lovenox) 30 mg SC DAILY [facility] PRN Reason: Protocol Last Admin: 02/28/17 08:20 Dose: 30 mg Gabapentin (Neurontin) 300 mg PO DAILY [facility] Last Admin: 02/28/17 08:18 Dose: 300 mg Levothyroxine Sodium (Synthroid) 100 mcg PO DAILY@0630 [facility] Last Admin: 02/28/17 07:00 Dose: 100 mcg Metformin HCl (Glucophage) 850 mg PO BID [facility] Last Admin: 02/28/17 08:18 Dose: 850 mg Metoprolol Succinate (Toprol Xl) 50 mg PO DAILY [facility] Last Admin: 02/28/17 08:18 Dose: 50 mg Oxycodone/Acetaminophen (Percocet 5/325 Mg Tab) 1 tab PO Q6 PRN PRN Reason: Pain, moderate (4-7) Stop: 03/01/17 22:01 Last Admin: 02/27/17 23:42 Dose: 1 tab Sitagliptin Phosphate (Januvia) 50 mg PO DAILY [facility] Last Admin: 08/13/17 08:18 Dose: 50 mg Valsartan (Diovan) 160 mg PO DAILY [facility] Last Admin: 02/28/17 08:18 Dose: 160 mg - Labs Labs: 02/28/17 06:00 02/28/17 05:30 PT 11.5 Seconds (9.8-13.1) 02/26/17 12:30 INR 1.1 (0.9-1.2) 02/26/17 12:30 APTT 32.0 Seconds (25.6-37.1) 02/26/17 12:30 - Constitutional Appears: Well, Non-toxic, No Acute Distress - Extremities Exam Additional comments: Patient was seen and evaluated at bedside Discussed plan in detail with attending Dr. Heredia Charts, labs, vitals reviewed- afebrile, no leukocytosis Modified mancia compression c/d/i. Instructed to NWB Patient will continue to follow while in house. - Neurological Exam Neurological Exam: Alert, Awake, Oriented x3 - Psychiatric Exam Psychiatric exam: Normal Affect, Normal Mood Assessment and Plan - Assessment and Plan (Free Text) Assessment: 86 year old female with DM seen for right 5th metatarsal fracture
--- NOTE | 2017-02-28 13:22 | PN ---
DATE: 02/28/2017 SUBJECTIVE: The patient is seen and examined. Interim events noted. Consults noted and appreciated. Cardiology and neurology consult and intervention noted and appreciated. The patient remains in regular medical floor. The patient feels okay. No specific complaint. No chest pain. No shortness of breath. PHYSICAL EXAMINATION: GENERAL: The patient is in no acute distress. VITAL SIGNS: Stable. HEART: S1 and S2 normal, regular. LUNGS: Good bilateral air entry. ABDOMEN: Soft, nontender. EXTREMITIES: Right lower extremity is under podiatric dressing. No sign of distal complication. No edema. No calf swelling. No tenderness. No acute ischemia. CENTRAL NERVOUS SYSTEM: Essentially unchanged. DIAGNOSTIC DATA: Available diagnostic data reviewed. ASSESSMENT: Overall, the patient's general medical condition is stable. PLAN: As ordered. Shlomo Gomez MD
[2017-02-28] MEDS: Oxycodone/Acetaminophen 5/325 mg Tab PO PRN (21:09)
[2017-03-01] MEDS: Levothyroxine 100 MCG TAB PO SCH (05:51)
[2017-03-01 06:44] LABS: HEMOGLOBIN 12.2 g/dL (12.0-16.0); MEAN CELL VOLUME 85.7 fl (81.0-99.0); MEAN CORPUSCULAR HEMOGLOBIN 27.7 pg (27.0-31.0); MEAN CORPUSCULAR HGB CONC 32.3 g/dL (33.0-37.0); RBC 4.42 Mil/uL (3.80-5.20); RED CELL DISTRIBUTION WIDTH 15.4 % (11.5-14.5); WHITE BLOOD COUNT 7.2 K/uL (4.8-10.8)
[2017-03-01 07:02] LABS: ALB/GLOB RATIO 1.4 (1.0-2.1); ALBUMIN 3.8 g/dL (3.5-5.0); CALCIUM 10.1 mg/dL (8.4-10.2)
--- NOTE | 2017-03-01 08:43 | PN ---
DATE: 03/01/2017 SUBJECTIVE: The patient was seen and examined. Interim events noted. Consults noted and appreciated. Podiatry followup and intervention noted and appreciated. The patient still complains of foot pain, controls with medications, but sometimes the pain does get worse. PHYSICAL EXAMINATION GENERAL: The patient is in no acute distress. VITAL SIGNS: Stable. HEART: S1 and S2 normal, regular. LUNGS: Good bilateral air entry. ABDOMEN: Soft, nontender. EXTREMITIES: No sign of acute distal complication. No edema. No calf swelling. No tenderness. No acute ischemia. Right foot is under surgical dressing. CENTRAL NERVOUS SYSTEM: Essentially unchanged. DIAGNOSTIC DATA: Available diagnostic data reviewed. ASSESSMENT: Overall, the patient's general medical condition is stable. PLAN: As ordered. Shlomo Gomez MD
[2017-03-01] MEDS: Oxycodone/Acetaminophen 5/325 mg Tab PO PRN (09:14)
[2017-03-01] MEDS: Metoprolol Succinate 50 mg XL Tab PO SCH (09:16)
[2017-03-01] MEDS: Enoxaparin 30 mg Syringe SC SCH (09:18)
[2017-03-02] MEDS: Levothyroxine 100 MCG TAB PO SCH (06:45)
--- NOTE | 2017-03-02 06:54 | CP.PCM.PN ---
Subjective - Date & Time of Evaluation Date of Evaluation: 03/02/17 Time of Evaluation: 06:51 - Subjective Subjective: 86 year old female with DM seen for right 5th metatarsal fracture seen at bedside. Patient is seen resting comfortably in bed. Modified Mancia compression is c/d/i. Patient reports pain to the right foot. No acute events overnight. Denies n/v/sob/cp/chills or f. Objective - Vital Signs/Intake and Output Vital Signs (last 24 hours): Temp Pulse Resp BP Pulse Ox 97.3 F L 74 20 145/72 98 03/02/17 04:26 03/02/17 04:26 03/02/17 04:26 03/02/17 04:26 03/02/17 04:26 - Medications Medications: Current Medications Acetaminophen (Tylenol 325mg Tab) 650 mg PO Q6 PRN PRN Reason: Pain, Mild (1-3) Last Admin: 03/02/17 00:56 Dose: 650 mg Atorvastatin Calcium (Lipitor) 20 mg PO DAILY [facility] Last Admin: 03/01/17 09:16 Dose: 20 mg Cyanocobalamin (Vitamin B12 1000 Mcg/Ml Inj) 1,000 mcg IM DAILY [facility] Last Admin: 03/01/17 09:16 Dose: 1,000 mcg Enoxaparin Sodium (Lovenox) 30 mg SC DAILY [facility] PRN Reason: Protocol Last Admin: 03/01/17 09:18 Dose: 30 mg Gabapentin (Neurontin) 300 mg PO DAILY [facility] Last Admin: 03/01/17 09:16 Dose: 300 mg Levothyroxine Sodium (Synthroid) 100 mcg PO DAILY@0630 [facility] Last Admin: 03/02/17 06:45 Dose: 100 mcg Metformin HCl (Glucophage) 850 mg PO BID [facility] Last Admin: 03/01/17 19:12 Dose: 850 mg Metoprolol Succinate (Toprol Xl) 50 mg PO DAILY [facility] Last Admin: 03/01/17 09:16 Dose: 50 mg Sitagliptin Phosphate (Januvia) 50 mg PO DAILY [facility] Last Admin: 03/01/17 09:16 Dose: 50 mg Valsartan (Diovan) 160 mg PO DAILY [facility] Last Admin: 03/01/17 09:15 Dose: 160 mg - Labs Labs: 03/01/17 05:20 03/01/17 05:20 PT 11.5 Seconds (9.8-13.1) 02/26/17 12:30 INR 1.1 (0.9-1.2) 02/26/17 12:30 APTT 32.0 Seconds (25.6-37.1) 02/26/17 12:30 - Constitutional Appears: Well, Non-toxic, No Acute Distress - Neurological Exam Neurological Exam: Alert, Awake - Psychiatric Exam Psychiatric exam: Normal Affect, Normal Mood Assessment and Plan - Assessment and Plan (Free Text) Assessment: 86 year old female with DM seen for right 5th metatarsal fracture Plan: Patient was seen and evaluated at bedside Discussed plan in detail with attending Dr. Heredia Charts, labs, vitals reviewed- afebrile, no leukocytosis Modified mancia compression c/d/i. Instructed to NWB Patient will continue to follow while in house
[2017-03-02] MEDS: Metoprolol Succinate 50 mg XL Tab PO SCH (09:08)
[2017-03-02] MEDS: Enoxaparin 30 mg Syringe SC SCH (09:10)
[2017-03-02] MEDS ORDERED: Oxycodone/Acetaminophen 5/325 mg Tab PO PRN ×2 (09:15)
--- NOTE | 2017-03-02 09:19 | PCM.SURG1 ---
Surgeon's Initial Post Op Note - Surgeon's Notes Surgeon: Dr. Daryn Willams, DPM [employer]: Dr. Michel Hand PGY1, Dr. Brooke Swanson PGY1 Type of Anesthesia: IV Sedation, Local Anesthesia Administered By: Dr. 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 M- 3-0 nylon, 3-0 vicryl. I- none Post-Operative Diagnosis: Same Operation Performed: Left first partial metatarsal head resection and partial proximal phalanx base resectionand and excision of left tibial sesamoid with excision of all non-viable soft tissue Specimen/Specimens Removed: Partial left first metatarsal head and tibial sesamoid. Partial left proximal phalanx base Estimated Blood Loss: EBL {In ML}: 50 Blood Products Given: N/A Drains Used: No Drains Post-Op Condition: Good Date of Surgery/Procedure: 03/02/17 Time of Surgery/Procedure: 09:22
[2017-03-02 14:45] VITALS: O2SAT 95
[2017-03-02 16:15] VITALS: BP 126/72; PULSE 71; RESP 20; TEMP 98.4
--- NOTE | 2017-03-03 07:22 | CP.PCM.DIS ---
Provider - Provider Date of Admission: 02/28/17 01:25 Attending physician: Shlomo Gomez MD Time Spent in preparation of Discharge (in minutes): 30 Diagnosis - Discharge Diagnosis (1) Fracture of metatarsal of right foot, closed Status: Acute Comment: stable, c/w pain control. (2) Essential (primary) hypertension Status: Chronic Comment: controlled, c/w current medications (3) Diabetes mellitus type 2 in nonobese Status: Chronic Comment: improving, c/w current management (4) Acute kidney failure Status: Acute Comment: improved, BUN still slightly elevated, but Creatinine is WNL. c/w f/u in TCU (5) Unsteady gait Status: Acute Comment: transfer to TCU. PT/OT eval and treatment Hospital Course - Lab Results Lab Results: Most Recent Lab Values WBC 7.2 K/uL (4.8-10.8) 03/01/17 05:20 RBC 4.42 Mil/uL (3.80-5.20) 03/01/17 05:20 Hgb 12.2 g/dL (12.0-16.0) 03/01/17 05:20 Hct 37.9 % (34.0-47.0) 03/01/17 05:20 MCV 85.7 fl (81.0-99.0) 03/01/17 05:20 MCH 27.7 pg (27.0-31.0) 03/01/17 05:20 MCHC 32.3 g/dL (33.0-37.0) L 03/01/17 05:20 RDW 15.4 % (11.5-14.5) H 03/01/17 05:20 Plt Count 168 K/uL (130-400) 03/01/17 05:20 MPV 8.7 fl (7.2-11.7) 02/26/17 12:30 Neut % (Auto) 68.1 % (50.0-75.0) 02/26/17 12:30 Lymph % (Auto) 17.2 % (20.0-40.0) L 02/26/17 12:30 [place] % (Auto) 6.8 % (0.0-10.0) 02/26/17 12:30 Eos % (Auto) 7.2 % (0.0-4.0) H 02/26/17 12:30 Baso % (Auto) 0.7 % (0.0-2.0) 02/26/17 12:30 Neut # 6.1 K/uL (1.8-7.0) 02/26/17 12:30 Lymph # 1.5 K/uL (1.0-4.3) 02/26/17 12:30 [place] # 0.6 K/uL (0.0-0.8) 02/26/17 12:30 Eos # 0.6 K/uL (0.0-0.7) 02/26/17 12:30 Baso # 0.1 K/uL (0.0-0.2) 02/26/17 12:30 PT 11.5 Seconds (9.8-13.1) 02/26/17 12:30 INR 1.1 (0.9-1.2) 02/26/17 12:30 APTT 32.0 Seconds (25.6-37.1) 02/26/17 12:30 Sodium 138 mmol/l (132-148) 03/01/17 05:20 Potassium 4.6 MMOL/L (3.6-5.0) 03/01/17 05:20 Chloride 105 mmol/L (98-107) 03/01/17 05:20 Carbon Dioxide 26 mmol/L (22-30) 03/01/17 05:20 Anion Gap 13 (10-20) 03/01/17 05:20 BUN 35 mg/dl (7-17) H 03/01/17 05:20 Creatinine 1.2 mg/dL (0.7-1.2) 03/01/17 05:20 Est GFR ( Amer) 52 03/01/17 05:20 Est GFR (Non-Af Amer) 43 03/01/17 05:20 POC Glucose (mg/dL) 95 mg/dL (65-110) 03/02/17 20:52 Random Glucose 132 mg/dL (65-105) H 03/01/17 05:20 Hemoglobin A1c 6.9 % (4.2-6.5) H 03/01/17 05:20 Calcium 10.1 mg/dL (8.4-10.2) 03/01/17 05:20 Magnesium 1.9 MG/DL (1.6-2.3) 02/26/17 12:30 Total Bilirubin 0.4 mg/dl (0.2-1.3) 03/01/17 05:20 AST 33 U/L (14-36) 03/01/17 05:20 ALT 28 U/L (9-52) 03/01/17 05:20 Alkaline Phosphatase 82 U/L (38-126) 03/01/17 05:20 Total Creatine Kinase 201 U/L (30-135) H 02/27/17 06:00 Troponin I 0.0420 ng/mL (0.00-0.120) 02/26/17 12:30 NT-Pro-B Natriuret Pep 1180 pg/ml (0-900) H 02/26/17 12:30 Total Protein 6.5 G/DL (6.3-8.2) 03/01/17 05:20 Albumin 3.8 g/dL (3.5-5.0) 03/01/17 05:20 Globulin 2.7 gm/dL (2.2-3.9) 03/01/17 05:20 Albumin/Globulin Ratio 1.4 (1.0-2.1) 03/01/17 05:20 Triglycerides 217 mg/DL (0-149) H 02/26/17 19:06 Cholesterol 199 mg/dL (0-199) 02/26/17 19:06 LDL Cholesterol Direct 87 mg/dL (0-129) 02/26/17 19:06 HDL Cholesterol 45 MG/DL (30-70) 02/26/17 19:06 Lipase 206 U/L (23-300) 02/26/17 12:30 Vitamin B12 266 pg/mL (239-931) 02/27/17 08:50 TSH 3rd Generation 0.59 mIU/ML (0.46-4.68) 02/27/17 08:50 Urine Color Yellow (YELLOW) 02/26/17 17:06 Urine Clarity Cloudy (Clear) 02/26/17 17:06 Urine pH 6.0 (5.0-8.0) 02/26/17 17:06 Ur Specific [place] 1.015 (1.003-1.030) 02/26/17 17:06 Urine Protein Negative mg/dL (NEGATIVE) 02/26/17 17:06 Urine Glucose (UA) Neg mg/dL (Normal) 02/26/17 17:06 Urine Ketones Negative mg/dL (NEGATIVE) 02/26/17 17:06 Urine Blood Moderate (NEGATIVE) 02/26/17 17:06 Urine Nitrate Negative (NEGATIVE) 02/26/17 17:06 Urine Bilirubin Negative (NEGATIVE) 02/26/17 17:06 Urine Urobilinogen 0.2-1.0 mg/dL (0.2-1.0) 02/26/17 17:06 Ur Leukocyte Esterase Large Wilfred/uL (Negative) 02/26/17 17:06 Urine RBC (Auto) 12 /hpf (0-3) H 02/26/17 17:06 Urine Microscopic WBC 55 /hpf (0-5) H 02/26/17 17:06 Ur Squamous Epith Cells 6 /hpf (0-5) H 02/26/17 17:06 Urine Bacteria Occ (<OCC) H 02/26/17 17:06 Hyaline Casts 0-2 /hpf (0-2) 02/26/17 17:06 - Hospital Course Hospital Course: patient seen and examined with attending this morning. Still c/o pain in right foot, but controlled with pain medications Afebrile denies Cp, SOB, N/V, abdomnal pain Tolerating PO and stable to be transfer to TCU today - Date & Time of H&P Date of H&P: 02/26/17 Time of H&P: 16:40 Discharge Exam - Head Exam Head Exam: ATRAUMATIC, NORMAL INSPECTION, NORMOCEPHALIC - Eye Exam Eye Exam: Normal appearance - ENT Exam ENT Exam: Mucous Membranes Moist - Respiratory Exam Respiratory Exam: Clear to PA & Lateral, NORMAL BREATHING PATTERN - Cardiovascular Exam Cardiovascular Exam: REGULAR RHYTHM, +S1, +S2 - GI/Abdominal Exam GI & Abdominal Exam: Normal Bowel Sounds, Soft. absent: Distended, Guarding, Rigid, Tenderness - Extremities Exam Extremities exam: normal inspection Additional comments: no calf tenderness, no edema noted - Neurological Exam Neurological exam: Alert, Oriented x3 - Skin Skin Exam: Dry, Intact, Normal Color Discharge Plan - Follow Up Plan Condition: STABLE Disposition: REHAB FACILITY/REHAB UNIT Instructions: Foot Fracture in Adults (DC) Additional Instructions: Transfer to TCU Dr. Gomez will f/u patient while in TCU
[2017-03-03] MEDS ORDERED: Enoxaparin 30 mg Syringe SC SCH (09:00)
== END 2017-03-02 17:07 | DRG 683 ==
LOC: H.ER 10:58 → H.ERHOLD 15:09 → H.MEDSURG1 18:28 → OBSVTOIN 02-28 01:25 → H.MEDSURG1 03-01 21:50
PROVIDERS: ADMIT Internal Medicine; ATTEND Internal Medicine
DX: N17.9 Acute kidney failure, unspecified (principal); I50.22 Chronic systolic (congestive) heart failure; E11.40 Type 2 diabetes mellitus with diabetic neuropathy, unspecified; I11.0 Hypertensive heart disease with heart failure; S92.351A Displaced fracture of fifth metatarsal bone, right foot, initial encounter for closed fracture; W18.2XXA Fall in (into) shower or empty bathtub, initial encounter; E86.0 Dehydration; R26.81 Unsteadiness on feet; E03.9 Hypothyroidism, unspecified; Z95.0 Presence of cardiac pacemaker; F17.210 Nicotine dependence, cigarettes, uncomplicated; I25.10 Atherosclerotic heart disease of native coronary artery without angina pectoris; Y92.002 Bathroom of unspecified non-institutional (private) residence as the place of occurrence of the external cause; E78.00 Pure hypercholesterolemia, unspecified; E11.65 Type 2 diabetes mellitus with hyperglycemia

== ENCOUNTER 2017-03-02 16:13 | Inpatient (IN) | payer MEDICARE ==
[2017-03-02 17:26] VITALS: BMI 25.0
[2017-03-02 20:29] VITALS: RESP 20
[2017-03-03] MEDS: Levothyroxine 100 MCG TAB PO SCH (06:17)
[2017-03-03] MEDS: Metoprolol Succinate 50 mg XL Tab PO SCH (08:38)
[2017-03-03] MEDS: Enoxaparin 30 mg Syringe SC SCH (08:40)
--- NOTE | 2017-03-03 18:30 | HP ---
CHIEF COMPLAINT: The patient was transferred from medical floor after she had a foot fracture at admission. HISTORY OF PRESENT ILLNESS: This is an 86-year-old female without significant past medical history, who had a mechanical fall and was having foot pain, so the patient was brought to the emergency room and after workup, the patient was found to have fracture of foot and was admitted to medical floor. After further workup, the patient has become stable. Per Medical, the patient needed further management and physical therapy, so the patient was transferred to transitional care and was admitted for further management. REVIEW OF SYSTEMS: Positive for foot pain, chronically controlled with pain medications. Review of system is otherwise negative for headache, dizziness, syncope, loss of consciousness, chest pain, shortness of breath, nausea, vomiting, diarrhea, constipation, or any other extremity or joint pain. Review of system of all other organ system is unremarkable. PAST MEDICAL HISTORY: Significant for arthritis. PAST SURGICAL HISTORY: Remarkable for recent foot fracture. PERSONAL HISTORY: The patient is currently nonsmoker and nondrinker. No substance abuse. MEDICATIONS: As per reconciliation sheet. . ALLERGIES: THE PATIENT IS NOT ALLERGIC TO ANY MEDICATIONS. FAMILY HISTORY: Noncontributory. PHYSICAL EXAMINATION: GENERAL: Well-built and well-nourished elderly female in no acute distress. VITAL SIGNS: Temperature afebrile, pulse 58, respirations 18, and blood pressure of 140/80. HEENT: Pupils are reactive to light. No JVD. No thyromegaly. No lymphadenopathy. No nystagmus. Normocephalic and atraumatic skull. HEART: S1 and S2 normal and regular. No significant murmur, gallop, or rub is heard. EXTREMITIES: No calf swelling. No tenderness. No acute ischemia. The patient with a recent fall, which is treated and corrected by Podiatry. CENTRAL NERVOUS SYSTEM: Essentially unchanged. LABORATORY DATA: Available diagnostic data reviewed. ADMITTING IMPRESSION: The patient with recent foot fracture and arthritis. PLAN: As ordered. Case and plan was discussed with patient. Shlomo Gomez MD
--- NOTE | 2017-03-03 18:45 | CP.PCM.CON ---
History of Present Illness - History of Present Illness History of Present Illness: Dr Lee PMR consultation on Diamante Bustos, born 1930, who has been admitted to [facility] TCU for rehabilitation following a fall that resulted in a right 5th digit Mancia fracture She has dressing in place and is non-weight bearing. She is comfortable at rest Review of Systems - Constitutional Constitutional: absent: Anorexia, Chills - EENT Eyes: absent: Blurred Vision Nose/Mouth/Throat: absent: Nasal Congestion - Cardiovascular Cardiovascular: absent: Chest Pain - Respiratory Respiratory: absent: Dyspnea - Gastrointestinal Gastrointestinal: absent: Abdominal Pain - Musculoskeletal Musculoskeletal: absent: Back Pain - Neurological Neurological: Abnormal Gait. absent: Abnormal Movements Past Patient History - Past Medical History & Family History Past Medical History?: Yes - Past Social History Smoking Status: Light Smoker < 10 Cigarettes Daily Drugs: Denies Home Situation {Lives}: Alone (stairs) - CARDIAC Hx Cardiac Disorders: No - PULMONARY Hx Respiratory Disorders: No - NEUROLOGICAL Hx Neurological Disorder: No - HEENT Hx HEENT Problems: Yes Hx Cataracts: Yes - RENAL Hx Chronic Kidney Disease: No - ENDOCRINE/METABOLIC Hx Endocrine Disorders: Yes Hx Diabetes Mellitus Type 2: Yes - HEMATOLOGICAL/ONCOLOGICAL Hx Blood Disorders: No Hx AIDS: No Hx Human Immunodeficiency Virus (HIV): No - INTEGUMENTARY Hx Dermatological Problems: No - MUSCULOSKELETAL/RHEUMATOLOGICAL Hx Musculoskeletal Disorders: Yes Hx Falls: Yes - GASTROINTESTINAL Hx Gastrointestinal Disorders: No - GENITOURINARY/GYNECOLOGICAL Hx Genitourinary Disorders: No - PSYCHIATRIC Hx Psychophysiologic Disorder: No Hx Substance Use: No - SURGICAL HISTORY Hx Surgeries: Yes Hx Hysterectomy: Yes - ANESTHESIA Hx Anesthesia: Yes Hx Anesthesia Reactions: No Hx Malignant Hyperthermia: No Meds Allergies/Adverse Reactions: Allergies Allergy/AdvReac Type Severity Reaction Status Date / Time Penicillins Allergy RASH Verified 03/02/17 17:24 - Medications Medications: Current Medications Acetaminophen (Tylenol 325mg Tab) 650 mg PO Q6 PRN PRN Reason: Pain, Mild (1-3) Atorvastatin Calcium (Lipitor) 20 mg PO DAILY [facility] Last Admin: 03/03/17 08:40 Dose: 20 mg Cyanocobalamin (Vitamin B12 1000 Mcg/Ml Inj) 1,000 mcg IM DAILY [facility] Last Admin: 03/03/17 08:39 Dose: 1,000 mcg Enoxaparin Sodium (Lovenox) 30 mg SC DAILY [facility] PRN Reason: Protocol Last Admin: 03/03/17 08:40 Dose: 30 mg Gabapentin (Neurontin) 300 mg PO DAILY [facility] Last Admin: 03/03/17 08:38 Dose: 300 mg Levothyroxine Sodium (Synthroid) 100 mcg PO DAILY@0630 [facility] Last Admin: 03/03/17 06:17 Dose: 100 mcg Metformin HCl (Glucophage) 850 mg PO BID [facility] Last Admin: 03/03/17 17:01 Dose: 850 mg Metoprolol Succinate (Toprol Xl) 50 mg PO DAILY [facility] Last Admin: 03/03/17 08:38 Dose: 50 mg Sitagliptin Phosphate (Januvia) 100 mg PO DAILY [facility] Last Admin: 03/03/17 08:38 Dose: 100 mg Tramadol HCl (Ultram) 50 mg PO Q6 PRN PRN Reason: Pain, moderate (4-7) Last Admin: 03/03/17 10:02 Dose: 50 mg Valsartan (Diovan) 160 mg PO DAILY [facility] Last Admin: 03/03/17 08:39 Dose: 160 mg Physical Exam - Constitutional Appears: Non-toxic, No Acute Distress - Head Exam Head Exam: ATRAUMATIC, NORMAL INSPECTION, NORMOCEPHALIC - ENT Exam ENT Exam: Mucous Membranes Moist - Respiratory Exam Respiratory Exam: NORMAL BREATHING PATTERN - Cardiovascular Exam Cardiovascular Exam: REGULAR RHYTHM - GI/Abdominal Exam GI & Abdominal Exam: absent: Distended - Extremities Exam Extremities exam: Negative for: normal inspection (has a right compressive wrap in place. no swelling or erythema of the toes. can wiggle them) - Neurological Exam Neurological exam: Alert, Oriented x3 - Psychiatric Exam Psychiatric exam: Normal Affect, Normal Mood Results - Vital Signs Recent Vital Signs: Last Vital Signs Temp 97.7 F 03/03/17 18:06 Pulse 79 03/03/17 18:06 Resp 20 03/03/17 18:06 BP 110/69 03/03/17 08:38 Pulse Ox 96 03/03/17 18:06 - Labs Labs: Laboratory Results - last 24 hr 03/03/17 03/03/17 03/03/17 05:52 10:53 16:38 POC Glucose (mg/dL) 111 H 127 H 77 Assessment & Plan - Assessment and Plan (Free Text) Assessment: right Mancia fracture NWB left shoulder prior problem with poor ROM continue PT/OT pain is controlled with Ultram continue current care.
[2017-03-04] MEDS: Levothyroxine 100 MCG TAB PO SCH (05:33)
[2017-03-04] MEDS: Enoxaparin 30 mg Syringe SC SCH (08:55)
[2017-03-04] MEDS: Metoprolol Succinate 50 mg XL Tab PO SCH (08:56)
--- NOTE | 2017-03-04 15:46 | CP.PCM.CON ---
History of Present Illness - History of Present Illness History of Present Illness: 86 year old female with DM seen for right 5th metatarsal fracture seen in room. Patient is seen resting comfortably in wheel chair. Modified Mancia compression is c/d/i. Patient reports pain to the right foot improving. No acute events overnight. Denies n/v/sob/cp/chills or f. Review of Systems - Review of Systems Review of Systems: ROS unremarkable outside HPI Past Patient History - Past Medical History & Family History Past Medical History?: Yes - Past Social History Smoking Status: Light Smoker < 10 Cigarettes Daily Drugs: Denies Home Situation {Lives}: Alone (stairs) - CARDIAC Hx Cardiac Disorders: No - PULMONARY Hx Respiratory Disorders: No - NEUROLOGICAL Hx Neurological Disorder: No - HEENT Hx HEENT Problems: Yes Hx Cataracts: Yes - RENAL Hx Chronic Kidney Disease: No - ENDOCRINE/METABOLIC Hx Endocrine Disorders: Yes Hx Diabetes Mellitus Type 2: Yes - HEMATOLOGICAL/ONCOLOGICAL Hx Blood Disorders: No Hx AIDS: No Hx Human Immunodeficiency Virus (HIV): No - INTEGUMENTARY Hx Dermatological Problems: No - MUSCULOSKELETAL/RHEUMATOLOGICAL Hx Musculoskeletal Disorders: Yes Hx Falls: Yes - GASTROINTESTINAL Hx Gastrointestinal Disorders: No - GENITOURINARY/GYNECOLOGICAL Hx Genitourinary Disorders: No - PSYCHIATRIC Hx Psychophysiologic Disorder: No Hx Substance Use: No - SURGICAL HISTORY Hx Surgeries: Yes Hx Hysterectomy: Yes - ANESTHESIA Hx Anesthesia: Yes Hx Anesthesia Reactions: No Hx Malignant Hyperthermia: No Meds Allergies/Adverse Reactions: Allergies Allergy/AdvReac Type Severity Reaction Status Date / Time Penicillins Allergy RASH Verified 03/02/17 17:24 - Medications Medications: Current Medications Acetaminophen (Tylenol 325mg Tab) 650 mg PO Q6 PRN PRN Reason: Pain, Mild (1-3) Last Admin: 03/04/17 05:32 Dose: 650 mg Atorvastatin Calcium (Lipitor) 20 mg PO DAILY [facility] Last Admin: 03/04/17 08:54 Dose: 20 mg Cyanocobalamin (Vitamin B12 1000 Mcg/Ml Inj) 1,000 mcg IM DAILY [facility] Last Admin: 03/04/17 08:57 Dose: 1,000 mcg Enoxaparin Sodium (Lovenox) 30 mg SC DAILY [facility] PRN Reason: Protocol Last Admin: 03/04/17 08:55 Dose: 30 mg Gabapentin (Neurontin) 300 mg PO DAILY [facility] Last Admin: 03/04/17 08:56 Dose: 300 mg Levothyroxine Sodium (Synthroid) 100 mcg PO DAILY@0630 [facility] Last Admin: 03/04/17 05:33 Dose: 100 mcg Metformin HCl (Glucophage) 850 mg PO BID [facility] Last Admin: 03/04/17 08:54 Dose: 850 mg Metoprolol Succinate (Toprol Xl) 50 mg PO DAILY [facility] Last Admin: 03/04/17 08:56 Dose: 50 mg Sitagliptin Phosphate (Januvia) 100 mg PO DAILY [facility] Last Admin: 03/04/17 08:54 Dose: 100 mg Tramadol HCl (Ultram) 50 mg PO Q6 PRN PRN Reason: Pain, moderate (4-7) Last Admin: 03/04/17 08:59 Dose: 50 mg Valsartan (Diovan) 160 mg PO DAILY [facility] Last Admin: 03/04/17 08:54 Dose: 160 mg Physical Exam - Constitutional Appears: Well, Non-toxic, No Acute Distress - Extremities Exam Additional comments: Dressing C/D/I CFT < 3 seconds to all digits POP to lateral fifth metatarsal Epicritic and protective sensation grossly intact - Neurological Exam Neurological exam: Alert, Oriented x3 - Psychiatric Exam Psychiatric exam: Normal Affect, Normal Mood Results - Vital Signs Recent Vital Signs: Last Vital Signs Temp 97.9 F 03/04/17 08:03 Pulse 75 03/04/17 08:56 Resp 20 03/04/17 08:03 BP 137/72 03/04/17 08:56 Pulse Ox 99 03/04/17 08:03 - Labs Labs: Laboratory Results - last 24 hr 03/03/17 03/03/17 03/04/17 16:38 20:56 07:05 POC Glucose (mg/dL) 77 136 H 125 H 03/04/17 10:40 POC Glucose (mg/dL) 180 H Assessment & Plan - Assessment and Plan (Free Text) Assessment: 86 year old female with DM seen for right 5th metatarsal fracture Plan: Patient seen and evaluated Charts, labs and vitals reviewed Plan discussed with attending Dr. Heredia Patient to remain NWB while fracture heals Patient to continue to PT/OT Patient to keep dressing C/D/I Podiatry will continue to follow while patient in house - Date & Time Date: 03/04/17 Time: 15:51
[2017-03-05] MEDS: Enoxaparin 30 mg Syringe SC SCH (08:52)
[2017-03-05] MEDS: Levothyroxine 100 MCG TAB PO SCH (08:53)
[2017-03-05] MEDS: Metoprolol Succinate 50 mg XL Tab PO SCH (08:54)
--- NOTE | 2017-03-05 10:49 | PN ---
DATE: 03/04/2017 SUBJECTIVE: The patient was seen and examined. Interim events are noted. The patient denies any specific complaints. Does have the leg pain, which is adequately controlled with current medications. PHYSICAL EXAMINATION: GENERAL: The patient is in no acute distress. VITAL SIGNS: Stable. Physical exam is essentially unchanged. *------* stable. PLAN: As ordered. Shlomo Gomez MD
--- NOTE | 2017-03-05 16:45 | PN ---
DATE: 03/05/2017 SUBJECTIVE: The patient was seen and examined. Interim events noted. Consults noted and appreciated. Podiatry intervention noted and appreciated. The patient remains in transitional care unit. The patient feels okay. Pain is adequately controlled. No chest pain. No shortness of breath. The patient is able to do some physical therapy. PHYSICAL EXAMINATION: GENERAL: The patient is in no acute distress. VITAL SIGNS: Stable. HEART: S1 and S2 normal, regular. LUNGS: Good bilateral air exchange. ABDOMEN: Soft and nontender. EXTREMITIES: No edema. No calf swelling or tenderness. No acute ischemia. Fracture site is under podiatric dressing. No sign of distal complications. 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 IMPRESSION: Overall, the patient's general medical condition is stable. PLAN: As ordered. Shlomo Gomez MD
[2017-03-06] MEDS: Levothyroxine 100 MCG TAB PO SCH (06:43)
[2017-03-06] MEDS: Metoprolol Succinate 50 mg XL Tab PO SCH (08:46)
[2017-03-06] MEDS: Enoxaparin 30 mg Syringe SC SCH (08:47)
--- NOTE | 2017-03-06 11:25 | PN ---
DATE: 03/06/2017 SUBJECTIVE: The patient seen and examined. Interim events noted. The patient remains in transitional care unit. The patient feels okay. Foot pain is adequately controlled. No chest pain or shortness of breath or any new complaints. PHYSICAL EXAMINATION: GENERAL: The patient is in no acute distress. VITAL SIGNS: Stable. HEART: S1 and S2 normal and regular. LUNGS: Good bilateral air exchange. ABDOMEN: Soft and nontender. EXTREMITIES: The patient's foot is under podiatric dressing. No sign of compromise. No edema. No calf swelling or tenderness. No acute ischemia. CENTRAL NERVOUS SYSTEM: Essentially unchanged. DIAGNOSTIC DATA: Available diagnostic data reviewed. ASSESSMENT: Overall, the patient's general medical condition is stable. PLAN: As ordered. Shlomo Gomez MD
--- NOTE | 2017-03-06 14:48 | CP.PCM.PN ---
Subjective - Date & Time of Evaluation Date of Evaluation: 03/06/17 Time of Evaluation: 12:40 - Subjective Subjective: 86 year old female with DM seen for right 5th metatarsal fracture seen in room. Patient is seen resting comfortably in wheel chair. Modified Mancia compression is in place and c/d/i. Patient reports pain to the right foot improving, though present, and controlled by pain medications. No acute events overnight. Objective - Vital Signs/Intake and Output Vital Signs (last 24 hours): Temp Pulse Resp BP Pulse Ox 97.9 F 64 20 118/70 98 03/06/17 08:51 03/06/17 08:51 03/06/17 08:51 03/06/17 08:51 03/06/17 08:51 - Medications Medications: Current Medications Acetaminophen (Tylenol 325mg Tab) 650 mg PO Q6 PRN PRN Reason: Pain, Mild (1-3) Last Admin: 03/04/17 05:32 Dose: 650 mg Atorvastatin Calcium (Lipitor) 20 mg PO DAILY [facility] Last Admin: 03/06/17 08:48 Dose: 20 mg Cyanocobalamin (Vitamin B12 1000 Mcg/Ml Inj) 1,000 mcg IM DAILY [facility] Last Admin: 03/06/17 08:47 Dose: 1,000 mcg Enoxaparin Sodium (Lovenox) 30 mg SC DAILY [facility] PRN Reason: Protocol Last Admin: 03/06/17 08:47 Dose: 30 mg Gabapentin (Neurontin) 300 mg PO DAILY [facility] Last Admin: 03/06/17 08:47 Dose: 300 mg Levothyroxine Sodium (Synthroid) 100 mcg PO DAILY@0630 [facility] Last Admin: 03/06/17 06:43 Dose: 100 mcg Metformin HCl (Glucophage) 850 mg PO BID [facility] Last Admin: 03/06/17 08:46 Dose: 850 mg Metoprolol Succinate (Toprol Xl) 50 mg PO DAILY [facility] Last Admin: 03/06/17 08:46 Dose: 50 mg Sitagliptin Phosphate (Januvia) 100 mg PO DAILY [facility] Last Admin: 03/06/17 08:46 Dose: 100 mg Tramadol HCl (Ultram) 50 mg PO Q6 PRN PRN Reason: Pain, moderate (4-7) Last Admin: 03/05/17 10:59 Dose: 50 mg Valsartan (Diovan) 160 mg PO DAILY [facility] Last Admin: 03/06/17 08:45 Dose: 160 mg - Constitutional Appears: Well, Non-toxic, No Acute Distress - Back Exam Additional comments: Dressing C/D/I CFT < 3 seconds to all digits POP to lateral fifth metatarsal Epicritic and protective sensation grossly intact Assessment and Plan - Assessment and Plan (Free Text) Assessment: 86 year old female with DM seen for right 5th metatarsal fracture Plan: Patient seen and evaluated Charts, labs and vitals reviewed Plan discussed with attending Dr. Heredia Patient to remain NWB while fracture heals Patient to continue to PT/OT Patient to keep dressing C/D/I Podiatry will continue to follow while patient in house. Pt stable from podiatry standpoint for dsicharge.
[2017-03-07] MEDS: Levothyroxine 100 MCG TAB PO SCH (06:24)
[2017-03-07] MEDS: Metoprolol Succinate 50 mg XL Tab PO SCH (09:04)
[2017-03-07] MEDS: Enoxaparin 30 mg Syringe SC SCH (09:06)
--- NOTE | 2017-03-07 11:49 | PN ---
DATE: 03/07/2017 SUBJECTIVE: The patient was seen and examined. Interim events noted. Consults noted and appreciated. Podiatry followup and intervention noted and appreciated. The patient remains in transitional care unit. Denies any specific medical complaints. No chest pain or shortness of breath. Foot pain is adequately controlled. PHYSICAL EXAMINATION: GENERAL: The patient is in no acute distress. VITAL SIGNS: Stable. 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 DIAGNOSTIC DATA: Available diagnostic data reviewed. IMPRESSION: Overall, the patient is medically stable. PLAN: As ordered. Shlomo Gomez MD
[2017-03-08] MEDS: Levothyroxine 100 MCG TAB PO SCH (07:19)
[2017-03-08 08:43] LABS: MEAN CORPUSCULAR HEMOGLOBIN 27.5 pg (27.0-31.0); RED CELL DISTRIBUTION WIDTH 15.6 % (11.5-14.5); WHITE BLOOD COUNT 9.1 K/uL (4.8-10.8)
[2017-03-08 09:14] LABS: ALB/GLOB RATIO 1.4 (1.0-2.1); BILIRUBIN,TOTAL 0.5 mg/dl (0.2-1.3); POTASSIUM 4.3 MMOL/L (3.6-5.0); TOTAL PROTEIN 7.1 G/DL (6.3-8.2)
[2017-03-08] MEDS: Metoprolol Succinate 50 mg XL Tab PO SCH (09:29)
[2017-03-08] MEDS: Enoxaparin 30 mg Syringe SC SCH (09:29)
--- NOTE | 2017-03-08 13:12 | PN ---
DATE: 03/08/2017 SUBJECTIVE: The patient is seen and examined. Interim events noted. Consults noted and appreciated. Podiatry followup and intervention noted and appreciated. The patient remains in transitional care unit. Foot pain is adequately controlled. PHYSICAL EXAMINATION: GENERAL: The patient is in no acute distress. VITAL SIGNS: Stable. HEART: S1 and S2 normal and regular. LUNGS: Good bilateral air exchange. ABDOMEN: Soft and nontender. EXTREMITIES: No edema. No calf swelling. No tenderness. No acute ischemia. The patient is status post foot fracture. CENTRAL NERVOUS SYSTEM: Essentially unchanged. DIAGNOSTIC DATA: Available diagnostic data reviewed. IMPRESSION: Overall, the patient's general medical condition is stable. PLAN: As ordered. Shlomo Gomez MD
--- NOTE | 2017-03-08 17:58 | PN ---
DATE: 03/08/2017 SUBJECTIVE: The patient was seen and examined. Interim events noted. The patient remains in transitional care unit. Podiatry and consults noted and appreciated. The patient feels much better, pain controlled. No chest pain. No shortness of breath. The patient is able to walk with physical therapy on full weightbearing. PHYSICAL EXAMINATION: GENERAL: The patient is in no acute distress. VITAL SIGNS: Stable. HEART: S1 and S2 normal and regular. LUNGS: Good bilateral air exchange. ABDOMEN: Soft and nontender. EXTREMITIES: No edema. No calf swelling. No tenderness. No acute ischemia. CENTRAL NERVOUS SYSTEM: Essentially unchanged. DIAGNOSTIC DATA: Available diagnostic data reviewed. IMPRESSION: Overall, the patient's general medication condition is stable. PLAN: As ordered. Slhomo Gomez MD
[2017-03-09] MEDS: Levothyroxine 100 MCG TAB PO SCH (06:23)
[2017-03-09] MEDS: Metoprolol Succinate 50 mg XL Tab PO SCH (08:59)
[2017-03-09] MEDS: Enoxaparin 30 mg Syringe SC SCH (12:52)
[2017-03-10] MEDS: Levothyroxine 100 MCG TAB PO SCH (05:49)
[2017-03-10] MEDS: Enoxaparin 30 mg Syringe SC SCH (08:52)
[2017-03-10] MEDS: Metoprolol Succinate 50 mg XL Tab PO SCH (08:53)
[2017-03-11] MEDS: Levothyroxine 100 MCG TAB PO SCH (06:06)
--- NOTE | 2017-03-11 08:39 | PN ---
DATE: 03/10/2017 SUBJECTIVE: The patient was seen and examined. Interim events noted. The patient remains in the transitional care unit. The patient feels okay. Her pain is adequately controlled. No new complaint of chest pain or shortness of breath. PHYSICAL EXAMINATION: GENERAL: The patient is in no acute distress. VITAL SIGNS: Stable. HEART: S1 and S2 normal and regular. LUNGS: Good bilateral air exchange. ABDOMEN: Soft and nontender. EXTREMITIES: No edema. No calf swelling. No tenderness. No acute ischemia. The patient is status post fracture. IMPRESSION: The patient's general medical condition is stable. PLAN: As ordered. Shlomo Gomez MD
[2017-03-11] MEDS: Enoxaparin 30 mg Syringe SC SCH (08:47)
[2017-03-11] MEDS: Metoprolol Succinate 50 mg XL Tab PO SCH (08:48)
--- NOTE | 2017-03-11 08:59 | PN ---
DATE: 03/11/2017 SUBJECTIVE: The patient was seen and examined. Interim events noted. The patient remains in transitional care unit, feels okay, and pain is tolerable. No chest pain. No shortness of breath. PHYSICAL EXAMINATION GENERAL: The patient is in no acute distress. VITAL SIGNS: Stable. Physical exam is essentially unchanged. DIAGNOSTIC DATA: Available diagnostic data reviewed. IMPRESSION: Overall, the patient's general medical condition is stable. PLAN: As ordered. Shlomo Gomez MD
--- NOTE | 2017-03-11 11:34 | RAD ---
PROCEDURE: Right Foot Radiographs. HISTORY: Right fifth metatarsal base fracture COMPARISON: 02/26/2017 FINDINGS: BONES: There is redemonstration of transverse fracture in the base of the 5th metatarsal. There is no significant callus formation. Bone alignment is normal. Bone mineralization is normal. There is a prominent dorsal calcaneal enthesophyte. JOINTS: Normal. SOFT TISSUES: There is probable lateral periarticular calcification at the proximal interphalangeal joint of the 5th digit. OTHER FINDINGS: None. IMPRESSION: Redemonstration of transverse fracture at the base of the 5th metatarsal with no significant callus formation.
[2017-03-12] MEDS: Levothyroxine 100 MCG TAB PO SCH (05:54)
[2017-03-12] MEDS: Metoprolol Succinate 50 mg XL Tab PO SCH (09:01)
[2017-03-12] MEDS: Enoxaparin 30 mg Syringe SC SCH (09:03)
--- NOTE | 2017-03-12 10:09 | CP.PCM.PN ---
Subjective - Date & Time of Evaluation Date of Evaluation: 03/12/17 Time of Evaluation: 10:04 - Subjective Subjective: 86 year old female patient seen at bedside for right fifth metatarsal fracture. Patient has been receiving PT regularly. 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 Partial WB status was sought from them at that time because pt's insurance was cutting her off and she would be DC'd home with no adequate means of being able to move around the house. Attending Dr. Heredia gave permission for pt to be FWB as long as patient was in a CAM walker and to limit WB as much as possible. CAM walker was dispensed to patient yesterday. Today patient is refusing to where the CAM walker because she states that it is too heavy. Patient denies any further pedal complaints at this time. Patient denies N/V/F/C/CP/SOB Objective - Vital Signs/Intake and Output Vital Signs (last 24 hours): Temp Pulse Resp BP Pulse Ox 97.2 F L 60 20 138/57 L 87 L 03/12/17 09:04 03/12/17 09:04 03/12/17 09:04 03/12/17 09:04 03/12/17 09:04 - Medications Medications: Current Medications Acetaminophen (Tylenol 325mg Tab) 650 mg PO Q6 PRN PRN Reason: Pain, Mild (1-3) Last Admin: 03/11/17 23:16 Dose: 650 mg Atorvastatin Calcium (Lipitor) 20 mg PO DAILY [facility] Last Admin: 03/12/17 09:01 Dose: 20 mg Cyanocobalamin (Vitamin B12 1000 Mcg/Ml Inj) 1,000 mcg IM Q30D [facility] Enoxaparin Sodium (Lovenox) 30 mg SC DAILY [facility] PRN Reason: Protocol Last Admin: 03/12/17 09:03 Dose: 30 mg Gabapentin (Neurontin) 300 mg PO DAILY [facility] Last Admin: 03/12/17 09:01 Dose: 300 mg Levothyroxine Sodium (Synthroid) 100 mcg PO DAILY@0630 [facility] Last Admin: 03/12/17 05:54 Dose: 100 mcg Metformin HCl (Glucophage) 850 mg PO BID [facility] Last Admin: 03/12/17 09:01 Dose: 850 mg Metoprolol Succinate (Toprol Xl) 50 mg PO DAILY [facility] Last Admin: 03/12/17 09:01 Dose: 50 mg Sitagliptin Phosphate (Januvia) 100 mg PO DAILY [facility] Last Admin: 03/12/17 09:01 Dose: 100 mg Tramadol HCl (Ultram) 50 mg PO Q6 PRN PRN Reason: Pain, moderate (4-7) Last Admin: 03/11/17 19:43 Dose: 50 mg Valsartan (Diovan) 160 mg PO DAILY [facility] Last Admin: 03/12/17 09:01 Dose: 160 mg - Labs Labs: 03/08/17 08:20 03/08/17 08:20 - Constitutional Appears: Well, Non-toxic, No Acute Distress - Extremities Exam Additional comments: LE focused exam: Dressing C/D/I CFT < 3 seconds to all digits POP to lateral fifth metatarsal Epicritic and protective sensation grossly intact - Neurological Exam Neurological Exam: Alert, Awake, Oriented x3 - Psychiatric Exam Psychiatric exam: Normal Affect, Normal Mood Assessment and Plan - Assessment and Plan (Free Text) Assessment: 86 year old female with DM seen for right 5th metatarsal fracture Plan: Patient seen and evaluated at bedside Charts, labs and vitals reviewed WIth the aid of a method consultant it was adamantly stressed to the patient that she needs to where the CAM boot whenever she is weight bearing It was made clear to patient that if she does not wear the CAM boot when walking she greatly increases the chances that her right fifth metatarsal fracture will not heal and may become more problematic Patient became irate and refused to wear the CAM walker She stated that she would rather just stay the way she is then have to wear it Patient was also informed that she should make every effort to follow up at Dr. Heredia's clinic next Wednesday at [facility] Again patient angrily stated that she would not go and that she would stay in her house forever It was made clear to patient that she was refusing our medical advice Patient stated that she did not care Patient's leg is dressed in modified Mancia compression Patient will be DC'd home this afternoon from [facility]
--- NOTE | 2017-03-12 13:07 | PN ---
DATE: 03/12/2017 SUBJECTIVE: The patient was seen and examined. Interim events noted. The patient remains in transitional care unit. The patient feels okay. No chest pain. No shortness of breath. PHYSICAL EXAMINATION: GENERAL: The patient is in no acute distress. VITAL SIGNS: Stable. Physical exam is essentially unchanged. DIAGNOSTIC DATA: Available diagnostic data reviewed. X-ray of the foot reveals fracture. No new changes. IMPRESSION: Overall, the patient is clinically stable. PLAN: As ordered. Shlomo Gomez MD
--- NOTE | 2017-03-12 15:55 | CP.PCM.PN ---
Subjective - Date & Time of Evaluation Date of Evaluation: 03/12/17 Time of Evaluation: 15:54 - Subjective Subjective: patient seen in room right soft cast still in place afebrile left UE poor shoulder ROM can wiggle toes well, no swelling continue current care Objective - Vital Signs/Intake and Output Vital Signs (last 24 hours): Temp Pulse Resp BP Pulse Ox 97.2 F L 60 20 138/57 L 87 L 03/12/17 09:04 03/12/17 09:04 03/12/17 09:04 03/12/17 09:04 03/12/17 09:04 - Medications Medications: Current Medications Acetaminophen (Tylenol 325mg Tab) 650 mg PO Q6 PRN PRN Reason: Pain, Mild (1-3) Last Admin: 03/11/17 23:16 Dose: 650 mg Atorvastatin Calcium (Lipitor) 20 mg PO DAILY [facility] Last Admin: 03/12/17 09:01 Dose: 20 mg Cyanocobalamin (Vitamin B12 1000 Mcg/Ml Inj) 1,000 mcg IM Q30D [facility] Enoxaparin Sodium (Lovenox) 30 mg SC DAILY [facility] PRN Reason: Protocol Gabapentin (Neurontin) 300 mg PO DAILY [facility] Last Admin: 03/12/17 09:01 Dose: 300 mg Levothyroxine Sodium (Synthroid) 100 mcg PO DAILY@0630 [facility] Last Admin: 03/12/17 05:54 Dose: 100 mcg Metformin HCl (Glucophage) 850 mg PO BID [facility] Last Admin: 03/12/17 09:01 Dose: 850 mg Metoprolol Succinate (Toprol Xl) 50 mg PO DAILY [facility] Last Admin: 03/12/17 09:01 Dose: 50 mg Sitagliptin Phosphate (Januvia) 100 mg PO DAILY [facility] Last Admin: 03/12/17 09:01 Dose: 100 mg Tramadol HCl (Ultram) 50 mg PO Q6 PRN PRN Reason: Pain, moderate (4-7) Valsartan (Diovan) 160 mg PO DAILY [facility] Last Admin: 03/12/17 09:01 Dose: 160 mg - Labs Labs: 03/08/17 08:20 03/08/17 08:20
[2017-03-13] MEDS: Levothyroxine 100 MCG TAB PO SCH (06:03)
[2017-03-13] MEDS: Enoxaparin 30 mg Syringe SC SCH (08:45)
[2017-03-13] MEDS: Metoprolol Succinate 50 mg XL Tab PO SCH (08:46)
[2017-03-14] MEDS: Levothyroxine 100 MCG TAB PO SCH (06:46)
[2017-03-14] MEDS: Metoprolol Succinate 50 mg XL Tab PO SCH (08:18)
[2017-03-14] MEDS: Enoxaparin 30 mg Syringe SC SCH (08:18)
--- NOTE | 2017-03-14 13:06 | CP.PCM.PN ---
Subjective - Date & Time of Evaluation Date of Evaluation: 03/14/17 Time of Evaluation: 11:40 - Subjective Subjective: 86 year old female patient seen at bedside for right fifth metatarsal fracture. Patient has been receiving PT regularly. 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 Partial WB status was sought from them at that time because pt's insurance was cutting her off and she would be DC'd home with no adequate means of being able to move around the house. Attending Dr. Heredia gave permission for pt to be FWB as long as patient was in a CAM walker and to limit WB as much as possible. CAM walker was dispensed to patient last week. Patient is still refusing to wear the CAM walker because she states that it is too heavy. Patient denies any further pedal complaints at this time. Patient denies N/V/F/C/CP/SOB Objective - Vital Signs/Intake and Output Vital Signs (last 24 hours): Temp Pulse Resp BP Pulse Ox 97.2 F L 66 20 132/61 94 L 03/14/17 09:07 03/14/17 09:07 03/14/17 09:07 03/14/17 09:07 03/14/17 09:07 - Medications Medications: Current Medications Acetaminophen (Tylenol 325mg Tab) 650 mg PO Q6 PRN PRN Reason: Pain, Mild (1-3) Last Admin: 03/11/17 23:16 Dose: 650 mg Atorvastatin Calcium (Lipitor) 20 mg PO DAILY@2100 [facility] Last Admin: 03/13/17 21:45 Dose: 20 mg Cyanocobalamin (Vitamin B12 1000 Mcg/Ml Inj) 1,000 mcg IM Q30D [facility] Enoxaparin Sodium (Lovenox) 30 mg SC DAILY [facility] PRN Reason: Protocol Last Admin: 03/14/17 08:18 Dose: 30 mg Gabapentin (Neurontin) 300 mg PO DAILY [facility] Last Admin: 03/14/17 08:18 Dose: 300 mg Levothyroxine Sodium (Synthroid) 100 mcg PO DAILY@0630 [facility] Last Admin: 03/14/17 06:46 Dose: 100 mcg Metformin HCl (Glucophage) 850 mg PO BID [facility] Last Admin: 03/14/17 08:18 Dose: 850 mg Metoprolol Succinate (Toprol Xl) 50 mg PO DAILY [facility] Last Admin: 03/14/17 08:18 Dose: 50 mg Sitagliptin Phosphate (Januvia) 100 mg PO DAILY [facility] Last Admin: 03/14/17 08:17 Dose: 100 mg Tramadol HCl (Ultram) 50 mg PO Q6 PRN PRN Reason: Pain, moderate (4-7) Last Admin: 03/13/17 10:30 Dose: 50 mg Valsartan (Diovan) 160 mg PO DAILY [facility] Last Admin: 03/14/17 08:17 Dose: 160 mg - Labs Labs: 03/08/17 08:20 03/08/17 08:20 - Constitutional Appears: Well, Non-toxic, No Acute Distress - Extremities Exam Additional comments: LE focused exam: Dressing C/D/I CFT < 3 seconds to all digits POP to lateral fifth metatarsal Epicritic and protective sensation grossly intact - Neurological Exam Neurological Exam: Alert, Awake, Oriented x3 - Psychiatric Exam Psychiatric exam: Normal Affect, Normal Mood Assessment and Plan - Assessment and Plan (Free Text) Assessment: 86 year old female with DM seen for right 5th metatarsal fracture Plan: Patient seen and evaluated at bedside Patient discussed in details with attending Dr. Heredia Charts, labs and vitals reviewed WIth the aid of a firebreak cutter it was adamantly stressed to the patient that she needs to where the CAM boot whenever she is weight bearing It was made clear to patient that if she does not wear the CAM boot when walking she greatly increases the chances that her right fifth metatarsal fracture will not heal and may become more problematic Patient is refusing to wear the CAM walker She stated that she would rather just stay the way she is then have to wear it and not go home because she does not have enough people taking care of her Patient was also informed that she should make every effort to follow up at Dr. Heredia's clinic next Wednesday at Again patient angrily stated that she would not go and that she would stay in her house forever It was made clear to patient that she was refusing our medical advice Patient's leg is dressed in modified Mancia compression Patient will be DC'd home from [facility] on Wednesday
--- NOTE | 2017-03-14 16:35 | PN ---
DATE: 03/14/2017 SUBJECTIVE: The patient was seen and examined. Interim events noted. The patient remains in transitional care unit. Podiatry consult noted and appreciated. The patient feels okay. No chest pain. No shortness of breath. Foot pain is adequately controlled. PHYSICAL EXAMINATION: GENERAL: The patient is in no acute distress. VITAL SIGNS: Stable. HEART: S1 and S2, normal and regular. LUNGS: Good bilateral air exchange. ABDOMEN: Soft and nontender. EXTREMITIES: No edema. No calf swelling or tenderness. No acute ischemia. CENTRAL NERVOUS SYSTEM: Essentially unchanged. DIAGNOSTIC DATA: Available diagnostic data reviewed. IMPRESSION: Overall, the patient's general medical condition is stable. PLAN: As ordered. Shlomo Gomez MD
[2017-03-15] MEDS: Levothyroxine 100 MCG TAB PO SCH (07:09)
[2017-03-15] MEDS: Metoprolol Succinate 50 mg XL Tab PO SCH (08:08)
[2017-03-15] MEDS: Enoxaparin 30 mg Syringe SC SCH (08:08)
--- NOTE | 2017-03-15 08:51 | PN ---
DATE: SUBJECTIVE: The patient seen and examined. Interim events noted. Consult noted, appreciated. Podiatry and plans examiner followup and intervention noted and appreciated. The patient remains in transitional care unit. The patient remains uncooperative with the Cam boot. Denies any medical complaints of chest pain and or shortness of breath. PHYSICAL EXAMINATION GENERAL: The patient is in no acute distress. VITAL SIGNS: Stable. HEART: S1 and S2 normal, regular. LUNGS: Good bilateral air exchange. ABDOMEN: Soft, nontender. EXTREMITIES: The patient is status post fracture. No edema. No calf swelling or tenderness. No acute ischemia. No sign of distal neurovascular compromise. CENTRAL NERVOUS SYSTEM: Essentially unchanged. DIAGNOSTIC DATA: Available, diagnostic data reviewed. ASSESSMENT: Overall, the patient's general medical condition is stable. PLAN: As ordered. Case and plan discussed with the patient. Shlomo Goemz MD
--- NOTE | 2017-03-15 11:15 | PN ---
DATE: 03/15/2017 SUBJECTIVE: The patient was seen and examined. Interim events noted. The patient remains in transitional care unit. The patient is awake and responsive and feels okay. She complains of multiple joint pain and also foot pain. She refuses to wear Cam walker. She denies any chest pain or shortness of breath. PHYSICAL EXAMINATION: GENERAL: The patient is in no acute distress. VITAL SIGNS: Stable. HEART: S1 and S2, normal and regular. LUNGS: Good bilateral air entry. ABDOMEN: Soft and nontender. EXTREMITIES: No edema. No calf swelling or tenderness. No acute ischemia. CENTRAL NERVOUS SYSTEM: Essentially unchanged. DIAGNOSTIC DATA: Available diagnostic data reviewed. IMPRESSION: Overall, the patient's general medical condition is stable. PLAN: As ordered. Shlomo Gomez MD
[2017-03-16] MEDS: Enoxaparin 30 mg Syringe SC SCH (09:23)
[2017-03-16] MEDS: Metoprolol Succinate 50 mg XL Tab PO SCH (09:23)
[2017-03-16] MEDS: Levothyroxine 100 MCG TAB PO SCH (09:23)
--- NOTE | 2017-03-16 13:14 | PN ---
DATE: 03/16/2017 SUBJECTIVE: The patient seen and examined. Interim events noted. The patient remains in transitional care unit. Podiatry consult noted and appreciated. The patient feels okay. No specific complaint of chest pain or shortness of breath. Leg pain is adequately controlled. The patient is wearing a boot. The patient is for possible discharge today. PHYSICAL EXAMINATION: GENERAL: The patient is in no acute distress. VITAL SIGNS: Stable. HEART: S1, S2, normal, regular. LUNGS: Good bilateral air exchange. ABDOMEN: Soft, nontender. EXTREMITIES: No edema. No calf swelling or tenderness. No acute ischemia. The patient is wearing CAM boots. CENTRAL NERVOUS SYSTEM: Essentially unchanged. DIAGNOSTIC DATA: Available diagnostic data reviewed. IMPRESSION: Overall, the patient's general medical condition is stable. PLAN: Discharge the patient to rehabilitation group and follow up by primary care physician. Shlomo Gomez MD
[2017-03-17] MEDS: Levothyroxine 100 MCG TAB PO SCH (06:36)
[2017-03-17] MEDS: Metoprolol Succinate 50 mg XL Tab PO SCH (08:47)
[2017-03-17 10:57] LABS: HEMATOCRIT 41.3 % (34.0-47.0); MEAN CELL VOLUME 86.3 fl (81.0-99.0); MEAN CORPUSCULAR HEMOGLOBIN 27.6 pg (27.0-31.0); RED CELL DISTRIBUTION WIDTH 15.8 % (11.5-14.5)
[2017-03-17 11:10] LABS: ALB/GLOB RATIO 1.5 (1.0-2.1); BILIRUBIN,TOTAL 0.5 mg/dl (0.2-1.3); CALCIUM 9.9 mg/dL (8.4-10.2); POTASSIUM 5.1 MMOL/L (3.6-5.0); TOTAL PROTEIN 7.1 G/DL (6.3-8.2)
--- NOTE | 2017-03-17 11:12 | PN ---
DATE: 03/17/2017 SUBJECTIVE: The patient is seen and examined. Interim events noted. The patient remains in transitional care unit. Arrangement is being made for durable equipment at home for the patient, certification of which is done. The patient feels okay. Pain is adequately controlled. PHYSICAL EXAMINATION: GENERAL: The patient is in no acute distress. VITAL SIGNS: Stable. HEART: S1, S2, normal, regular. LUNGS: Good bilateral air exchange. ABDOMEN: Soft, nontender. EXTREMITIES: The patient is status post fracture. No sign of distal neurovascular compromise. No edema. No calf swelling or tenderness. No acute ischemia. 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 DIAGNOSTIC DATA: Available diagnostic data reviewed. ASSESSMENT: Overall, the patient's general medical condition is stable. PLAN: As ordered. Shlomo Gomez MD
[2017-03-17] MEDS: Enoxaparin 30 mg Syringe SC SCH (16:00)
[2017-03-18] MEDS: Levothyroxine 100 MCG TAB PO SCH (06:21)
[2017-03-18 08:09] VITALS: TEMP 97.9; O2SAT 99
[2017-03-18 08:40] VITALS: BP 118/69; PULSE 71
[2017-03-18] MEDS: Metoprolol Succinate 50 mg XL Tab PO SCH (08:40)
[2017-03-18] MEDS: Enoxaparin 30 mg Syringe SC SCH (08:40)
--- NOTE | 2017-03-18 12:05 | PN ---
DATE: 03/18/2017 SUBJECTIVE: The patient is seen and examined. Interim events noted. The patient feels okay. No chest pain or shortness of breath. PHYSICAL EXAMINATION GENERAL: The patient is in no acute distress. VITAL SIGNS: Stable. HEART: S1 and S2, normal and regular. LUNGS: Good bilateral air entry. ABDOMEN: Soft and nontender. EXTREMITIES: No edema. No calf swelling or tenderness. No acute ischemia. The patient is status post fracture. No sign of distal neurovascular compromise. CENTRAL NERVOUS SYSTEM: Essentially unchanged. DIAGNOSTIC DATA: Available diagnostic data reviewed. ASSESSMENT: Overall, the patient's general medical condition is stable. The patient was waiting for durable medical equipment, which has arrived. The patient is for possible discharge home today. PLAN: As ordered. Case and plan discussed with the patient. Shlomo Gomez MD
== END 2017-03-18 14:30 | disposition home health service (06) | DRG 561 ==
LOC: H.TCU 17:28
PROVIDERS: ADMIT Internal Medicine; ATTEND Internal Medicine
PROC: F07M6FZ Therapeutic Exercise Treatment of Musculoskeletal System - Whole Body using Assistive, Adaptive, Supportive or Protective Equipment (ICD-10-PCS; principal; 2017-03-03)
PROC: F08Z4FZ Home Management Treatment using Assistive, Adaptive, Supportive or Protective Equipment (ICD-10-PCS; 2017-03-03)
PROC: F07Z9FZ Gait Training/Functional Ambulation Treatment using Assistive, Adaptive, Supportive or Protective Equipment (ICD-10-PCS; 2017-03-03)
DX: S92.351D Displaced fracture of fifth metatarsal bone, right foot, subsequent encounter for fracture with routine healing (principal); E11.9 Type 2 diabetes mellitus without complications; W19.XXXD Unspecified fall, subsequent encounter; M19.90 Unspecified osteoarthritis, unspecified site; F17.210 Nicotine dependence, cigarettes, uncomplicated; Z90.710 Acquired absence of both cervix and uterus; H26.9 Unspecified cataract; M25.50 Pain in unspecified joint; M79.606 Pain in leg, unspecified